=== PATIENT | female | born 1955 | race Caucasian/White ===

== ENCOUNTER → 2020-08-28 12:22 | Outpatient (BNVA) | payer OTHER, SELFPAY | PROVIDERS: Family Provider Family Medicine; PCP Family Medicine; Visit Provider Family Medicine | DX: I10 Essential (primary) hypertension (principal); Z00.00 Encounter for general adult medical examination without abnormal findings | CPT/HCPCS: 80053; 85025 ==

== ENCOUNTER → 2020-09-10 12:57 | Outpatient (BNVA) | payer OTHER, SELFPAY | PROVIDERS: Family Provider Family Medicine; PCP Family Medicine; Visit Provider Nurse Practitioner Family | DX: J06.9 Acute upper respiratory infection, unspecified (principal); Z20.822 Contact with and (suspected) exposure to COVID-19 | CPT/HCPCS: 87635 ==

== ENCOUNTER 2020-09-25 07:51 | Emergency (ER) | payer OTHER, SELFPAY ==
[2020-09-25 08:06] VITALS: BP 154/97; PULSE 97; RESP 20; TEMP 36.7; O2SAT 94; BMI 39.4
--- NOTE | 2020-09-25 08:35 | ED_ITS ---
HPI - General Adult General: Chief complaint: General Medical Stated complaint: Lower Back pain Time Seen by Provider: 09/25/20 08:16 History of Present Illness: HPI narrative: Patient is a 64-year-old female comes to the ED with right-sided back pain. Pain started last night around 2:00 in the morning. She rates the pain at 9.5 out of 10 and says it is located in the right lower back and radiates around into right lower quadrant abdomen. She has nausea as well but has not had any episodes of emesis. She states that some of the pain is positional but also says the pain is pretty constant. She has not taken any [id number] pain meds before coming to the ED. Denies any history of kidney stones. Denies any fever, chills, shortness of breath, chest pain, bowel symptoms, dysuria or hematuria. Associated symptoms: Reports nausea; Deny chest pain, dyspnea, headache(s), rash, palpitations or vomiting Review of Systems Const: Denies: fever(s), chills or fatigue Eyes: Denies: change in vision or eye discomfort ENMT: Denies: throat pain, odynophagia, nasal discharge or nasal congestion Card: Denies: chest pain, palpitations, edema, swelling of feet/ankles, dyspnea on exertion or orthopnea Resp: Denies: dyspnea, productive cough or non-productive cough GI: Reports: abdominal pain (pain radiates to RLQ) and nausea; Denies: vomiting, diarrhea, constipation or hematochezia : Reports: flank pain (right flank); Denies: dysuria or hematuria Musc: Denies: neck pain, back pain or extremity swelling Skin/Breast: Denies: rash or new lesions Neuro: Denies: headache(s), numbness in extremities or weakness in extremities PFS ED PFSH: Medical History Hypertension Social History Smoking and tobacco status: former smoker Alcohol intake: never Physical Exam Const: COMMON NORMALS: patient oriented x3 and alert GENERAL APPEARANCE: cooperative; not comfortable (Uncomfortable due to pain) NUTRITIONAL APPEARANCE: overweight HENMT: COMMON NORMALS: normocephalic HEAD & SCALP: normocephalic MOUTH: Normal oral and palatal mucosa present THROAT: posterior oropharynx normal and uvula midline Eye: COMMON NORMALS: Equal, round and reactive pupils present PUPIL: Yes Equal, round and reactive pupils present Neck/C-Spine: COMMON NORMALS: supple GENERAL: Yes normal visual inspection Resp: COMMON NORMALS: normal respiratory effort, No retractions, No use of accessory muscles and clear to auscultation bilaterally AUSCULTATION: clear to auscultation bilaterally Cardio: COMMON NORMALS: regular rate, regular rhythm, S1 normal heart sound present, S2 normal heart sound present, No gallops present (Cardio), No clicks present (Cardio), No murmurs present (Cardio) and Peripheral pulses 2+ throughout RATE: regular rate RHYTHM: regular rhythm HEART SOUNDS: S1 normal heart sound present and S2 normal heart sound present PERIPHERAL PULSES: Peripheral pulses 2+ throughout GI: COMMON NORMALS: Normal to inspection, nondistended, normoactive bowel sounds present, Soft to palpation and no masses INSPECTION: Yes central obesity PALPATION: Yes Soft to palpation and Yes Tenderness to palpation present (GI) Details: RLQ (Mild, generalized) : BLADDER/KIDNEY EXAM: Yes CVA tenderness on the right Back/Pelvis: GENERAL BACK: Yes CVA tenderness Extremity: COMMON NORMALS: normal to inspection Neuro: COMMON NORMALS: patient oriented x3 and moves all extremities SE NSORIUM/ORIENTATION: Yes alert Skin: GENERAL SKIN EXAM: dry skin Course Reevaluation(s): Reevaluation #1: After patient received IV morphine and fluids her pain improved to a 5 out of 10. Consultations: Consultation #1: I contacted Dr. Velez told about patient case, labs and the kidney stone seen on CT. Told that it was [address] Velez sent to get patient's pain controlled and he will see them outpatient on this coming Thursday. He told me to let patient know that she will possibly be needing a stent placed or shockwave treatment to help stone pass. Time: 10:37 Vital Signs: Vital signs: Vital Signs Temperature 98.1 F 09/25/20 08:06 Pulse Rate 91 09/25/20 11:11 Respiratory Rate 16 09/25/20 11:11 Blood Pressure 115/70 09/25/20 11:11 Pulse Oximetry 93 09/25/20 11:11 MDM - General Adult MDM Narrative: Medical decision making narrative: Patient is a 64-year-old female comes to the ED with right flank pain. Patient appears nontoxic but does appear in some pain and discomfort. Exam shows some right CVA tenderness but the rest of exam is benign. Vital stable. White blood cell count 12.1 the rest of CBC and CMP were unremarkable. UA showed a lot of red blood cells. CT of abdomen pelvis showed a 8 mm right stone at UP junction with right hydronephrosis. Patient was given IV fluids, morphine and Zofran and her symptoms improved. I contacted Dr. Velez and told about patient case, labs and CT findings and he recommended having patient's pain controlled and he will see her outpatient for further evaluation on this coming Thursday. He thought he would probably have to either perform shockwave treatment or a stent to help patient passed out. Patient was discharged home with a prescription for Zofran, tamsulosin and hydrocodone for pain. She was told the outsole caser will contact you in the next several days to set up an appointment with Dr. Velez. Return to ED precautions given. She is told to strain her urine to collect stone and to bring it to Dr. Velez's office for further analysis. Patient understood agree with plan. Lab Data: Attestation: I reviewed the patient's lab results. Labs: Lab Results 09/25/20 09/25/20 09/25/20 Range/Units 09:14 09:14 09:14 WBC 12.1 H (4.0-10.0) 10^3/ uL RBC 4.79 (4.1-5.3) 10^6/u L Hgb 13.9 (11.5-15.3) g/dL Hct 44.9 (37.0-47.0) % MCV 93.7 (81-99) fL MCH 29.0 (28.0-34.0) pg MCHC 31.0 (30.0-36.0) g/dL RDW 14.0 (12.1-15.1) % Plt Count 489 H (130-400) 10^3/c mm MPV 10.8 H (7.4-10.4) fL Neut % (Auto) 75.2 % Lymph % (Auto) 13.9 % Hendricks % (Auto) 8.4 % Eos % (Auto) 1.7 % Baso % (Auto) 0.6 % Neut # (Auto) 9.09 H (1.8-7.7) 10^3/u L Lymph # (Auto) 1.7 (0.8-4.8) 10^3/u L Hendricks # (Auto) 1.0 H (0.2-0.9) 10^3/u L Eos # (Auto) 0.2 (0.0-0.8) 10^3/u L Baso # (Auto) 0.1 (0.0-0.1) 10^3/u L Nucleated RBC % (a uto) 0 % Nucleated RBCs # 0.0 /100WBC Sodium 141 (136-145) mmol/L Potassium 3.9 (3.5-5.1) mmol/L Chloride 102 (98-107) mmol/L Carbon Dioxide 30 H (22-29) mmol/L Anion Gap 12.9 (5-19) BUN 12 (8-23) mg/dL Creatinine 0.7 (0.5-0.9) mg/dL GFR Calculation 84.2 L (90-130) mL/min Glucose 97 (65-115) mg/dL Calculated Osmolal ity 292 (285-295) mOsm/k g Calcium 9.1 (8.5-10.5) mg/dL Total Bilirubin 0.4 (0.15-1.2) mg/dL AST 16 (0-32) U/L ALT 11 (0-33) U/L Alkaline Phosphata se 124 H (35-105) IU/L Total Protein 7.1 (6.6-8.7) g/dL Albumin 4.3 (3.5-5.2) g/dL Globulin 2.8 (1.3-4.6) g/dL Lipase 23 (13-60) U/L Urine Color Yellow (Yellow) Urine Appearance Cloudy (CLEAR) Urine pH 6.5 (5-7) Ur Specific Gravit y 1.010 (1.005-1.030) Urine Protein 2+ H (Negative) Urine Glucose (UA) Norm (Normal) Urine Ketones Negative (Negative) Urine Blood 3+ H (Negative) Urine Nitrate Negative (Negative) Urine Bilirubin 1+ H (Negative) Urine Urobilinogen 1 H (Negative) mg/dL Ur Leukocyte Sally ase 1+ H (Negative) Urine RBC Too numerous to c nt H (0-2) /hpf Urine WBC 5-10 H (0-5) /hpf Ur Squamous Epith Cells 5-10 H (0-5) /hpf Amorphous Sediment Not Reportable Urine Bacteria 3+ H (NONE) /hpf Imaging Data^: CT Abd/Pel: Attestation: I personally reviewed and interpreted this imaging study as follows: Radiologist's impression: [place] [address] [address] [place] [address] CT Scan Report Signed Patient: Rasheeda Child Unit #: [id number] : 1955 Age/Sex: 64 / F ADM Date: 09/25/20 Loc: ER Room/Bed: Attending Dr: Ordering Provider/Ordering MD: Abdias Wong Date of Service: 09/25/20 Procedure(s): CT kidney stone 80851 Accession Number(s): [id number] Report Number: [id number] WS: [id number] CT ABDOMEN AND PELVIS NONCONTRAST HISTORY: Right flank pain with nausea TECHNIQUE: Imaging performed through the abdomen and pelvis. Coronal and sagittal reformats are submitted. All CT scans at [facility] use at least one of these dose optimization mohinder hniques: automated exposure control; mA and/or kV adjustment per patient size (includes targeted exams where dose is matched to clinical indication); or iterative reconstruction. DLP: 1829.36 mGy.cm COMPARISON: None available. Lower thorax: Focal ill-defined areas of consolidation at the lung bases but greater on the RIGHT. May all be related to atelectasis. Due to the dense area of consolidation at the RIGHT lung base follow-up is recommended. This may be an area of pneumonia. Heart is normal size. Moderate size hiatal hernia. Liver: Mild hepatomegaly. No bile duct dilatation. Gallbladder: Normal gallbladder. Pancreas: Normal size and attenuation. Normal pancreatic duct. No pancreatitis or mass. Spleen: Normal size spleen. Low-attenuation 11 mm nodule in the superior spleen. Nonspecific and may be a cyst. Adrenal glands: Normal. No mass. Right kidney: Mildly enlarged LEFT kidney with mild perinephric stranding. Multiple nonobstructing central renal pelvic calcifications. Mild to moderate hydronephrosis secondary to an 8 mm calcification at the UP junction. Ureter distal to this calcification is normal. Left kidney: Normal size kidney. 3.6 x 4.2 cm cyst upper pole is partially exophytic. Nonobstructing 8 mm calcification in the lower pole. No renal obstruction. Aorta: Normal abdominal aorta, no aneurysm or atherosclerosis. No free fluid, intraperitoneal air or significant lymphadenopathy. GI tract: Normal appendix. No GI tract obstruction. Scattered diverticula in the distal colon with no acute diverticulitis. Abdominal wall: Negative. No hernia. Pelvis: Uterus is midline. No adnexal masses. Ovaries are atrophic as expected. No free fluid or adenopathy. Negative appearance of the urinary bladder. Osseous structures: Marked increase in the lumbar lordosis. Mild narrowing of the hip joints with osteophytic ridging. CT/CT kidney stone [id number] IMPRESSION: 1. Mild to moderate RIGHT hydronephrosis secondary to an 8 mm calcification at the UP junction. 2. Additional nonobstructing bilateral renal calculi. 3. Normal appendix. 4. Bibasilar areas of consolidation, is more significant on the RIGHT. RIGHT lower lobe pneumonia versus atelectasis or early neoplasm. Recommend follow-up chest CT in 6-8 weeks. 5. Moderate hiatal hernia. Dictated By: Laura Fletcher DO Signed By: Laura Fletcher DO Signed Date/Time: 09/25/20918 DD/ 1 Discharge Plan Discharge Patient Disposition: Home Clinical Impression: Kidney stone on right side Condition: Stable Prescriptions: New Zofran 4 mg tablet 4 mg PO Q8H PRN (Reason: nausea and vomiting) Qty: 12 RF: 0 tamsulosin 0.4 mg capsule 0.4 mg PO DAILY Qty: 20 RF: 0 No Action loratadine [Claritin] 10 mg tablet 10 mg PO DAILY RF: 0 vitamin B complex [B Complex-Vitamin B12] Tablet 1 tab PO DAILY PRN (Reason: unknown) RF: 0 naproxen 250 mg Tablet 500 mg PO DAILY RF: 0 ProAir HFA 90 mcg/actuation Hfa Aerosol Inhaler 2 puff INHALATION Q4H PRN (Reason: Shortness Of Breath) RF: 0 echinacea 4 cap PO DAILY PRN (Reason: unknown) RF: 0 lisinopril 20 mg tablet 20 mg PO DAILY@13 RF: 0 hydrochlorothiazide 25 mg tablet 25 mg PO DAILY PRN (Reason: see pharmacy comments) RF: 0 Discharge Orders: Discharge ED (Routine); Ordered 09/25/20 Ordered By: Abdias Wong Referrals: Johnnie Theodore MD [Primary Care Provider] - Discharge Diet: Regular Discharge Activity: Increase activity as tolerated Patient Instructions: Kidney Stones (ED), How to Strain Your Urine (ED), Opioid Safety Activity Restrictions/Additional Instructions: Follow-up with medical provider as directed. Case management should be contacting you in the next several days to set up an appointment with Dr. Velez the urologist. Strain urine to catch stone and drink lots of fluid to stay hydrated and help pass stone. Take medications as prescribed. You can take ibuprofen or Aleve for any pain or fevers. Return to the ER or your medical provider if condition worsens. Please read and understand discharge ins tructions. If any questions, please ask. Stand Alone Forms: Work/School Release Coding Level of Care Code ED Mushroom Cutter for Héctor Fwd Exam Comprehensive
--- NOTE | 2020-09-25 08:41 | CT_ITS ---
WS: [id number] CT ABDOMEN AND PELVIS NONCONTRAST HISTORY: Right flank pain with nausea TECHNIQUE: Imaging performed through the abdomen and pelvis. Coronal and sagittal reformats are submi tted. All CT scans at [facility] use at least one of these dose optimization techniques: automated exposure control; mA and/or kV adjustment per patient size (includes targeted exams where d ose is matched to clinical indication); or iterative reconstruction. DLP: 1829.36 mGy.cm COMPARISON: None available. Lower thorax: Focal ill-defined areas of consolidation at the lung bases but greater on the RIGHT. Ma y all be related to atelectasis. Due to the dense area of consolidation at the RIGHT lung base follow -up is recommended. This may be an area of pneumonia. Heart is normal size. Moderate size hiatal maldonado ia. Liver: Mild hepatomegaly. No bile duct dilatation. Gallbladder: Normal gallbladder. Pancreas: Normal size and attenuation. Normal pancreatic duct. No pancreatitis or mass. Spleen: Normal size spleen. Low-attenuation 11 mm nodule in the superior spleen. Nonspecific and may be a cyst. Adrenal glands: Normal. No mass. Right kidney: Mildly enlarged LEFT kidney with mild perinephric stranding. Multiple nonobstructing ce ntral renal pelvic calcifications. Mild to moderate hydronephrosis secondary to an 8 mm calcification at the UP junction. Ureter distal to this calcification is normal. Left kidney: Normal size kidney. 3.6 x 4.2 cm cyst upper pole is partially exophytic. Nonobstructing 8 mm calcification in the lower pole. No renal obstruction. Aorta: Normal abdominal aorta, no aneurysm or atherosclerosis. No free fluid, intraperitoneal air or significant lymphadenopathy. GI tract: Normal appendix. No GI tract obstruction. Scattered diverticula in the distal colon with no acute diverticulitis. Abdominal wall: Negative. No hernia. Pelvis: Uterus is midline. No adnexal masses. Ovaries are atrophic as expected. No free fluid or adolfo opathy. Negative appearance of the urinary bladder. Osseous structures: Marked increase in the lumbar lordosis. Mild narrowing of the hip joints with ost eophytic ridging. CT/CT kidney stone [id number] IMPRESSION: 1. Mild to moderate RIGHT hydronephrosis secondary to an 8 mm calcification at the UP junction. 2. Additional nonobstructing bilateral renal calculi. 3. Normal appendix. 4. Bibasilar areas of consolidation, is more significant on the RIGHT. RIGHT l ower lobe pneumonia versus atelectasis or early neoplasm. Recommend follow-up c hest CT in 6-8 weeks. 5. Moderate hiatal hernia.
[2020-09-25 09:10] VITALS: BP 157/99; PULSE 98; RESP 16; O2SAT 99
[2020-09-25] MEDS: sodium chloride 0.9% 500 ML 999 ML IV (09:19)
[2020-09-25] MEDS: ondansetron 2 mg/ML SDV 2 mL 4 MG IVP (09:20)
[2020-09-25 09:22] VITALS: RESP 16; O2SAT 98
[2020-09-25] MEDS: morphine 4 mg/mL SDV 1 mL IVP ×2 (09:22→10:39)
[2020-09-25 09:27] LABS: Basophils # 0.1 10^3/uL (0.0-0.1); Basophils % 0.6 %; Eosinophils # 0.2 10^3/uL (0.0-0.8); Eosinophils % 1.7 %; Hematocrit 44.9 % (37.0-47.0); Hemoglobin 13.9 g/dL (11.5-15.3); Lymphocytes # 1.7 10^3/uL (0.8-4.8); Lymphocytes % 13.9 %; Mean Corpuscular Volume 93.7 fL (81-99); Mean Platelet Volume 10.8 fL (7.4-10.4); Monocytes % 8.4 %; Neutrophils # 9.09 10^3/uL (1.8-7.7); Neutrophils % 75.2 %; Nucleated Red Blood Cells % 0 %; Platelet Count 489 10^3/cmm (130-400); Red Blood Count 4.79 10^6/uL (4.1-5.3); White Blood Count 12.1 10^3/uL (4.0-10.0)
[2020-09-25 09:46] LABS: Alanine Aminotransferase 11 U/L (0-33); Albumin Level 4.3 g/dL (3.5-5.2); Alkaline Phosphatase 124 IU/L (35-105); Anion Gap 12.9 (5-19); Aspartate Amino Transferase 16 U/L (0-32); Blood Urea Nitrogen 12 mg/dL (8-23); Calcium 9.1 mg/dL (8.5-10.5); Carbon Dioxide 30 mmol/L (22-29); Chloride 102 mmol/L (98-107); Globulin 2.8 g/dL (1.3-4.6); Glomerular Filtration Rate 84.2 mL/min (90-130); Glucose 97 mg/dL (65-115); Lipase 23 U/L (13-60); Osmolality Calculated 292 mOsm/kg (285-295); Potassium 3.9 mmol/L (3.5-5.1); Sodium 141 mmol/L (136-145); Total Bilirubin 0.4 mg/dL (0.15-1.2); Total Protein 7.1 g/dL (6.6-8.7)
[2020-09-25 10:00] VITALS: BP 122/80; PULSE 90; RESP 14; O2SAT 97
[2020-09-25 10:05] LABS: Protein Urine 2+ (Negative); Urine Appearance Cloudy (CLEAR); Urine Color Yellow (Yellow); pH Urine 6.5 (5-7)
[2020-09-25 10:06] LABS: Bilirubin Urine 1+ (Negative); Blood Urine 3+ (Negative); Glucose Urine UA Norm (Normal); Ketones Urine Negative (Negative); Leukocyte Esterase Urine 1+ (Negative); Nitrate Urine Negative (Negative); RBC Urine TOO NUMEROUS TO CNT /hpf (0-2); Urobilinogen Urine 1 mg/dL (Negative)
[2020-09-25 10:07] LABS: Bacteria Urine 3+ /hpf
[2020-09-25 10:08] LABS: Add Urine Culture? Yes
[2020-09-25] MEDS: tamsulosin 0.4 mg Capsule PO (10:38)
[2020-09-25 10:39] VITALS: RESP 14; O2SAT 95
[2020-09-25 11:11] VITALS: BP 115/70; PULSE 91; RESP 16; O2SAT 93
--- NOTE | 2020-09-25 11:59 | DCPLANNER ---
slot manager had message to schedule a follow up appointment for patient with Dr. Velez. slot manager called the office of Dr. Velez, spoke with Shanna, gave clinic patients information. slot manager was told that patients information would be printed and reviewed. Clinic will call patient with appointment information.
--- NOTE | 2020-09-26 08:00 | DCPLANNER ---
Patient has a follow up appointment scheduled for Saturday, September 26, 2020 at 10:[address] Velez. Clinic will call patient with appointment information.
--- NOTE | 2020-10-11 12:18 | DCPLANNER ---
Patient had a follow up appointment scheduled for 09.26.[address] Velez - patient did attend appointment.
== END 2020-09-25 11:14 | disposition home or self-care (01) ==
PROVIDERS: Emergency Provider Physician Assistant; PCP Family Medicine
DX: N20.0 Calculus of kidney (principal); I10 Essential (primary) hypertension; Z87.891 Personal history of nicotine dependence
CPT/HCPCS: 74176; 80053; 81001; 83690; 85025; 87086; 96374; 96375; 96376; 99284; J2270; J2405; J7040

== ENCOUNTER 2020-09-26 08:48 | Outpatient (CLI) | payer OTHER, SELFPAY ==
--- NOTE | 2020-09-26 09:00 | XR_ITS ---
WS: [id number] KUB, AP view, 09/26/2020 Clinical Data: KIDNEY STONE Comparison: CT abdomen and pelvis, 09/25/2020 Findings: There is a round calcification measuring 0.8 cm overlying the right ureteropelvic junction. There may be a calcification overlying the inferior pole of the left kidney but the left kidney is partly obsc ured by fecal material and gas. The true pelvis shows no calcifications. XR/XR KUB [id number] Impression: 1. Probable bilateral renal calculi.
== END 2020-09-26 08:49 | disposition home or self-care (01) ==
LOC: RAD 08:52
PROVIDERS: PCP Family Medicine; Visit Provider Urology
DX: N20.0 Calculus of kidney (principal)
CPT/HCPCS: 74018; 81003

== ENCOUNTER 2020-10-01 12:42 | Day surgery (SDC) | payer OTHER, SELFPAY ==
[2020-09-28 14:08] VITALS: BMI 39.4
[2020-10-01] VITALS (7 sets, daily range): BP systolic 94–107; BP diastolic 53–75; PULSE 83–100; RESP 14–19; TEMP 36.2–36.6; O2SAT 93–99
--- NOTE | 2020-10-01 12:48 | XRR_ITS ---
PROCEDURE INFORMATION: Exam: XR Abdomen Exam date and time: 10/01/2020 12:48 PM Age: 64 years old Clinical indication: Screening exam; Other: Preop right upj eswl; Prior surgery; Surgery type: Tubal um hernia repairs TECHNIQUE: Imaging protocol: XR of the abdomen. Views: Frontal supine view of the abdomen. 1 View. COMPARISON: CR XR KUB [id number] 09/26/2020 9:20 AM FINDINGS: Gastrointestinal tract: Normal. No bowel dilation. Organs: Small opacity in profile with bilateral renal shadows may represent nephrolithiasis. Bones/joints: Moderate spondyloarthropathy changes of lumbar spine. XR/XR KUB [id number] IMPRESSION: 1. No acute findings. 2. Bilateral nephrolithiasis suspected.
[2020-10-01] MEDS: sodium chloride 0.9% 1,000 ML 30 ML IV (13:52)
--- NOTE | 2020-10-01 15:49 | W.PM.OPSUD ---
Surgery/Procedure H&P Update DATE OF PROCEDURE: October 01, 2020 DATE H&P PERFORMED: 09/26/20 H&P UPDATE INFORMATION: I have reviewed H&P completed within last 30 days, I have examined patient prior to procedure, No changes to prior documentation and [place] is [place] [facility] date indicated PREOP DIAGNOSIS: Right UPJ stone PLANNED PROCEDURE: Operation Date: 10/01/20 14:45 Proposed Procedures p Cystoscopy 97277 82665 N20.0 N20.1(Not Applicable) - Arslan Velez MD s Ureteral Stent Placement(Right) - Arslan Velez MD s ESWL(Not Applicable) - Arslan Velez MD
[2020-10-01] MEDS: levofloxacin-dextrose 5 % 500 MG/100 ML PREMIX 100 MG IV (16:32)
--- NOTE | 2020-10-01 17:15 | ANES.PREANE2 ---
Pre-Anesthetic Assessment Pre-Anesthetic Assessment: Height/Weight: Height 1.65 m Weight 107.501 kg Temp Pulse Resp BP Pulse Ox 97.8 F 100 18 94/75 97 10/01/20 13:32 10/01/20 13:32 10/01/20 13:32 10/01/20 13:32 10/01/20 13:32 Preop Diagnosis: Right UPJ stone Proposed Procedure: Operation Date: 10/01/20 14:45 Proposed Procedures p Cystoscopy 70226 04258 N20.0 N20.1(Not Applicable) - Arslan Velez MD s Ureteral Stent Placement(Right) - Arslan Velez MD s ESWL(Not Applicable) - Arslan Velez MD Was Beta Simona taken within 24 hours: N/A Was Clonidine taken within 24 hours: N/A Last intake: Intake Last Liquid Date 10/01/20 Last Liquid Time 10:00 Last Solid Date 09/29/20 Last Solid Time 18:00 Social: Social History: No alcohol and No tobacco Exam: Pre-Anes Outpt Exam: alert, oriented x 3, clear to auscultation bilaterally and regular rate & rhythm Airway: Submandibular: WNL Cervical ROM: WNL MP: 2 Dentition: Full Pulmonary: Pulmonary: Asthma CV/HEM: CV/HEM: HTN GI: GI: GERD Anesthetic Plan: ASA status: 2 Anesthesia: General Risk of > 500 ml blood loss (7ml/kg in children): No Meds/Allergies Current Medications: Current Medications Generic Name Dose Route Start Last Admin Trade Name Freq PRN Reason Stop Dose Admin Sodium Chloride 1,000 mls @ 30 ml s/hr 10/01/20 13:00 10/01/20 13:52 Sodium Chloride 0.9% IV 10/02/20 12:59 30 mls/hr .Q24H TOBY Administration PFSH Anesthesia PFSH: Medical History Bilateral renal stones History of abdominal hernia Hypertension Right ureteral stone Surgical History History of tonsillectomy and adenoidectomy History of tubal ligation Family History Mother Cancer THYROID AND LUNG CANCER Father , IN HIS 60'S Sepsis Social History Smoking and tobacco status: former smoker Alcohol intake: never Marital status: Current occupational status: employed History of recent travel: No Data Anesthesia Cardiac Studies: No Data to Display
--- NOTE | 2020-10-01 17:32 | P.OP_ITS ---
Operative Report Date of procedure: October 01, 2020 Pre-op Diagnosis: Right UPJ stone Post-op diagnosis: same Procedure Done: 1. Cystoscopy, RIGHT: Ureteral stent placement 2. Right renal extracorporeal shockwave lithotripsy Implants: 7 [place] by 26 cm double-pigtail stent Pathology: none sent Surgeon: Rosie Cash Surrender Calculator: Skip Anesthesia: General Estimated blood loss: None Urine output: Not measured Complications: None Findings: 1. Stent placed without difficulty 2. Stone easily focused upon and treated with excellent results Condition: stable Disposition: PACU Brief History: Mrs. Child is a very pleasant 64-year-old white female recently diagnosed with a an obstructing right UPJ stone. She was symptomatic. No contraindications to ESWL. Procedure: After routine preoperative evaluation examination and obtaining of informed consent she was taken to the operating suite on 10/01/2020 where general anesthesia was administered without difficulty after appropriate timeout was performed, SCDs confirmed to be functioning, preoperative antibiotics administered, beta-shilo protocol confirmed. Prepped and draped in usual sterile fashion in dorsolithotomy position paying careful attention to avoiding pressure points. 21 [place] cystoscope with 30 degree lens was introduced into the urethra meatus and advanced into the bladder to videoscopy. No stones were seen. Flexible tip guidewire advanced up the right ureter up into the right kidney and a 7 [place] by 26 cm double-pigtail stent without string was advanced over the guidewire through the cystoscope into appropriate position as confirmed via fluoroscopy and cystoscopy. The stone was easily identified on fluoroscopy. She was then positioned in supine position paying careful attention to avoiding pressure points. The shock head was positioned anteriorly. The focal point was brought to the stone utilizing biplanar fluoroscopy. Shockwave therapy was initiated intensity of 1 advanced an intensity of 4. After about 300 shocks a several minute pause was conducted. Right was initiated at 70 and later advanced to 90. The stone showed early and continued change throughout the procedure. By the completion of procedure I could not see any substantial fragments remaining. Fluoroscopy was utilized for real-time position changes as needed. A total of 2500 shocks were administered. She tolerated the procedure well without complications and was awakened in the operating room and returned to the recovery room in stable condition. PLANS: 1. Anticipate discharge from outpatient surgery 2. Follow-up in roughly 1 week with a KUB possible cystoscopy and stent removal
--- NOTE | 2020-10-01 18:08 | ANE.PACU2 ---
Inpatient post-anesthesia follow up: Airway intact: Yes Vital signs: Temperature 97.7 F Pulse Rate 94 Respiratory Rate 17 Blood Pressure 98/65 Pulse Oximetry 93 Oxygen Delivery Me thod Room Air Oxygen Flow Rate 7 Fraction of Inspir ed Oxygen Hydration adequate: Yes Nausea and vomiting: No Pain level: 2 Mental status: Baseline
[2020-10-01] MEDS: HYDROcodone-acetaminophen 5-325 mg Tablet 1 TAB PO (18:28)
== END 2020-10-01 18:38 | disposition home or self-care (01) ==
PROVIDERS: PCP Family Medicine; Visit Provider Urology
PROC: 0TJB8ZZ Inspection of Bladder, Via Natural or Artificial Opening Endoscopic (ICD-10-PCS; CPT 52000; principal; 2020-10-01 14:40)
PROC: (CPT 50605; 2020-10-01 14:40)
PROC: (CPT 50590; 2020-10-01 14:40)
DX: N20.1 Calculus of ureter (principal); J45.909 Unspecified asthma, uncomplicated; I10 Essential (primary) hypertension; K21.9 Gastro-esophageal reflux disease without esophagitis; Z87.891 Personal history of nicotine dependence
CPT/HCPCS: 50590; 52332; 74018; 96365; C2625; J1956; J2370; J2405; J2704; J2710; J3010; J3490; J7030

== ENCOUNTER 2020-10-10 09:45 | Outpatient (CLI) | payer OTHER, SELFPAY ==
--- NOTE | 2020-10-10 09:57 | XR_ITS ---
WS: [id number] KUB, AP view, 10/10/2020 Clinical Data: BILATERAL RENAL STONES Comparison: KUB, 10/01/2020. Findings: No abnormal intraabdominal masses are seen. There is no dilatated small bowel or evidence of obstruct ion. There is a right ureteral stent in good position. There may be a calcification adjacent to the renal pelvic region of the stent. There is a 0.6 cm calcification overlying the end. Pole of the left kidne y. XR/XR KUB [id number] Impression: 1. Right ureteral stent. 2. Probable bilateral renal calculi.
== END 2020-10-10 09:46 | disposition home or self-care (01) ==
LOC: RAD 09:53
PROVIDERS: PCP Family Medicine; Visit Provider Urology
DX: N20.0 Calculus of kidney (principal); N20.1 Calculus of ureter; Z96.0 Presence of urogenital implants
CPT/HCPCS: 74018; 81003; 82365; 88300

== ENCOUNTER 2021-04-11 09:47 | Outpatient (CLI) | payer MEDICARE, SELFPAY ==
--- NOTE | 2021-04-11 10:02 | XR_ITS ---
WS: [id number] ABDOMEN KUB CLINICAL INFORMATION: Renal/ureteral calculi. COMPARISON: October 10, 2020 FINDINGS: LEFT renal parenchymal calculus unchanged from previous measuring 8 mm overlying the lower pole. One or 2 tiny RIGHT renal parenchymal calculi. No visualized ureteral calculi. Pelvic phleboliths. Osteop enia. Advanced spondylitic changes lumbar spine with mild lumbar curve convex LEFT. XR/XR KUB [id number] Impression: 1. Interval removal of the RIGHT double-J ureteral stent compared to September. 2. Stable 8 mm LEFT renal parenchymal calculus overlying the lower pole. 3. One or 2 tiny RIGHT renal parenchymal calculi. 4. No visualized ureteral calculi. Pelvic phleboliths.
== END 2021-04-11 09:48 | disposition home or self-care (01) ==
LOC: RAD 09:59
PROVIDERS: PCP Family Medicine; Visit Provider Urology
DX: Z46.6 Encounter for fitting and adjustment of urinary device (principal); N20.2 Calculus of kidney with calculus of ureter
CPT/HCPCS: 73562; 74018; 81003

== ENCOUNTER 2021-10-08 09:29 | Outpatient (CLI) | payer MEDICARE, SELFPAY ==
--- NOTE | 2021-10-08 09:45 | XR_ITS ---
WS: [id number] Exam: XR KUB [id number] Date/Time of Exam: 10/08/2021 9:36 AM Reason For Exam: BILATERAL RENAL STONE Comparison 04/11/2021. Calcifications superimpose both kidneys apparently representing known renal stones. Nonspecific pelvi c calcifications noted. No bowel obstruction or free air. No sign of organ enlargement. Degenerative changes of the L-spine and hips. XR/XR KUB [id number] IMPRESSION: 1. Calcifications superimpose both kidneys and apparently represent known renal stones. 2. No acute abdominal process.
== END 2021-10-08 09:30 | disposition home or self-care (01) ==
PROVIDERS: PCP Family Medicine; Visit Provider Urology
DX: N20.0 Calculus of kidney (principal)
CPT/HCPCS: 74018; 81003; 99213

== ENCOUNTER 2021-11-06 14:15 | Emergency (ER) | payer MEDICARE, SELFPAY ==
[2021-11-06 14:32] VITALS: BP 141/84; PULSE 86; RESP 20; TEMP 36.6; O2SAT 91; BMI 39.7
--- NOTE | 2021-11-06 14:52 | XR_ITS ---
WS: [id number] XR chest 1V portable [id number] REASON FOR EXAM: sob FINDINGS: Thoracic aorta is within normal limits. There is mild cardiomegaly. Calcified granulomatous disease in both hemithoraces. There are reticular interstitial lung opacities which are of unknown chronicity but most likely chron ic. (No previous examination for comparison) Flattening of the left hemidiaphragmatic contour with blunting of the left costophrenic angle, pleura l scarring. Moderate changes of degenerative spondylosis in the mid and lower thoracic spine. XR/XR chest 1V portable [id number] IMPRESSION: Mild cardiomegaly. Chronic appearing interstitial changes in the lung bases with no definite acute chest abnormality.
--- NOTE | 2021-11-06 14:53 | ECG_ITS ---
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 Measurements Intervals [place] Rate: 87 P: 37 HI: 142 QRS: -43 QRSD: 126 T: 16 QT: 414 QTc: 500 Interpretive Statements SINUS RHYTHM WITH OCCASIONAL SUPRAVENTRICULAR PREMATURE COMPLEXES LEFT AXIS DEVIATION [QRS AXIS < -30] RIGHT BUNDLE BRANCH BLOCK [120+ ms QRS DURATION, UPRIGHT V1, 40+ ms S IN I/aVL/V4/V5/V6] No previous ECG available for comparison Electronically Signed On 11-07-2021 10:35:05 CDT by Patel Oleary M.D. [email or web address].[employer]/store/NU/[id number] f
[2021-11-06 15:35] LABS: Basophils # 0.1 10^3/uL (0.0-0.1); Basophils % 0.8 %; Eosinophils # 0.5 10^3/uL (0.0-0.8); Eosinophils % 5.7 %; Hemoglobin 13.8 g/dL (11.5-15.3); Lymphocytes # 1.8 10^3/uL (0.8-4.8); Lymphocytes % 19.3 %; Mean Corpuscular HGB Conc 30.7 g/dL (30.0-36.0); Mean Corpuscular Hemoglobin 29.1 pg (28.0-34.0); Mean Corpuscular Volume 94.9 fl (81-99); Monocytes # 0.6 10^3/uL (0.2-0.9); Monocytes % 6.1 %; Neutrophils # 6.16 10^3/uL (1.8-7.7); Neutrophils % 67.9 %; Nucleated Red Blood Cells % 0 %; Platelet Count 226 10^3/cmm (130-400); Red Blood Count 4.74 10^6/uL (4.1-5.3); Red Cell Distribution Width 15.6 % (12.1-15.1); White Blood Count 9.1 10^3/uL (4.0-10.0)
[2021-11-06 16:05] LABS: Alanine Aminotransferase 10 U/L (0-33); Albumin Level 4.1 g/dL (3.5-5.2); Alkaline Phosphatase 136 U/L (35-105); Anion Gap 12.9 (5-19); Aspartate Amino Transferase 15 U/L (0-32); Blood Urea Nitrogen 15 mg/dL (8-23); Calcium 9.4 mg/dL (8.5-10.5); Carbon Dioxide 30 mmol/L (22-29); Chloride 100 mmol/L (98-107); Globulin 2.9 g/dL (1.3-4.6); Glomerular Filtration Rate 83.7 mL/min (90-130); Glucose 89 mg/dL (65-115); NT Pro B Type Natriuretic Pept 46 pg/mL (0-125); Osmolality Calculated 288 mOsm/kg (285-295); Potassium 3.9 mmol/L (3.5-5.1); Sodium 139 mmol/L (136-145); Total Bilirubin 0.4 mg/dL (0.15-1.2)
[2021-11-06 16:31] LABS: Troponin(5th) Baseline 8 ng/L (0-10)
--- NOTE | 2021-11-06 16:36 | W.ED.SOB ---
HPI - SOB/Dyspnea General: Chief Complaint: Shortness of Breath/Dyspnea Stated Complaint: sob Time Seen by Provider: 11/06/21 16:12 History of Present Illness: HPI Narrative: Patient is a 66-year-old female comes to the ED with shortness of breath. Patient has a history of asthma and hypertension. She has an albuterol inhaler that she uses as needed for any shortness of breath or wheezing. She states that approximately 3 weeks ago she started developing shortness of breath and wheezing that has continued to progress. Endorses having a productive cough with a yellow sputum. She has to use her albuterol inhaler multiple times a day. Shortness of breath worsens with exertion. Denies any fever, nausea/vomiting, chest pain, palpitations, abdominal pain, bladder or bowel symptoms. Associated symptoms: Deny abdominal pain, chest pain, fever(s), nausea, orthopnea, palpitations or vomiting Review of Systems Const: Denies: fever(s), chills or fatigue Eyes: Denies: change in vision or eye discomfort ENMT: Denies: throat pain, odynophagia, nasal discharge or nasal congestion Card: Denies: chest pain, palpitations, edema, swelling of feet/ankles, dyspnea on exertion or orthopnea Resp: Reports: dyspnea, productive cough and wheezing; Denies: non-productive cough GI: Denies: abdominal pain, nausea, vomiting, diarrhea, constipation or hematochezia : Denies: flank pain, dysuria or hematuria Musc: Denies: neck pain, back pain or extremity swelling Skin/Breast: Denies: rash or new lesions Neuro: Denies: headache(s), numbness in extremities or weakness in extremities PFS ED PFSH: Medical History Bilateral renal stones History of abdominal hernia Hypertension Venous insufficiency of both lower extremities Surgical History History of lithotripsy History of tonsillectomy and adenoidectomy History of tubal ligation Family History Mother Cancer THYROID AND LUNG CANCER Father , IN HIS 60'S Sepsis Social History Smoking and tobacco status: former smoker Alcohol intake: never Marital status: Current occupational status: employed History of recent travel: No Physical Exam Const: COMMON NORMALS: no acute distress, patient oriented x3 and alert GENERAL APPEARANCE: cooperative and comfortable HENMT: COMMON NORMALS: normocephalic HEAD & SCALP: normocephalic MOUTH: Normal oral and palatal mucosa present THROAT: posterior oropharynx normal and uvula midline Neck/C-Spine: COMMON NORMALS: supple GENERAL: Yes normal visual inspection Resp: COMMON NORMALS: normal respiratory effort, No retractions and No use of accessory muscles AUSCULTATION: wheezes expiratory wheezes and lower bilaterally Cardio: COMMON NORMALS: regular rate, regular rhythm, S1 normal heart sound present, S2 normal heart sound present, No gallops present (Cardio), No clicks present (Cardio), No murmurs present (Cardio) and Peripheral pulses 2+ throughout RATE: regular rate RHYTHM: regular rhythm HEART SOUNDS: S1 normal heart sound present and S2 normal heart sound present PERIPHERAL PULSES: Peripheral pulses 2+ throughout GI: COMMON NORMALS: Normal to inspection, nondistended, normoactive bowel sounds present, Soft to palpation, non-tender and no masses PALPATION: Yes Soft to palpation : COMMON NORMALS: Yes no CVA tenderness BLADDER/KIDNEY EXAM: Yes no CVA tenderness Back/Pelvis: COMMON NORMALS: no CVA tenderness Extremity: COMMON NORMALS: normal to inspection Neuro: COMMON NORMALS: patient oriented x3 SENSORIUM/ORIENTATION: Yes alert GAIT: Yes Normal gait present Skin: GENERAL SKIN EXAM: dry skin Course Vital Signs: Vital signs: Vital Signs Temperature 98 F 11/06/21 14:32 Pulse Rate 88 11/06/21 18:05 Respiratory Rate 20 H 11/06/21 18:05 Blood Pressure 133/77 11/06/21 18:05 Pulse Oximetry 97 11/06/21 18:05 Oxygen Delivery Me thod 11/06/21 18:05 MDM - SOB/Dyspnea Medical Decision Making Patient is a 66-year-old female comes to the ED with shortness of breath. Patient has a history of asthma and hypertension. She has an albuterol inhaler that she uses as needed for any shortness of breath or wheezing. She states that approximately 3 weeks ago she started developing shortness of breath and wheezing that has continued to progress. Endorses having a productive cough with a yellow sputum. Vitals are stable. Patient appears nontoxic and in no acute distress. Bilateral lower lung wheezing noted upon auscultation. Rest of exam is benign. Labs were unremarkable patient's white blood cell count is 9.1. Chest x-ray shows some chronic appearing interstitial changes in the lung bases with no pneumonia seen. Troponins negative. EKG showed no acute findings. Patient was given DuoNeb breathing treatments here in the ED and lung sounds improved. Patient stated her shortness of breath and wheezing improved after breathing treatment. She was given a dose of Solu-Medrol here in the ED as well. She was diagnosed with bronchitis and asthma exacerbation and discharged home with a prescription for an antibiotic, steroid and budesonide inhaler. Told to follow-up with PCP in the next week for reevaluation. Patient understood and agreed with plan. Lab Data I reviewed the patient's lab results. : 11/06/21 15:28 11/06/21 15:28 Labs/Radiology: Radiology Impressions Chest X-Ray 11/06/21 14:52 IMPRESSION: Mild cardiomegaly. Chronic appearing interstitial changes in the lung bases with no definite acute chest abnormality. Laboratory Results WBC 9.1 10^3/uL (4.0-10.0) 11/06/21 15: RBC 4.74 10^6/uL (4.1-5.3) 11/06/21 15:28 Hgb 13.8 g/dL (11.5-15.3) 11/06/21 15:28 Hct 45.0 % (37.0-47.0) 11/06/21: MCV 94.9 fl (81-99) 11/06/21 15:28 MCH 29.1 pg (28.0-34.0) 11/06/21 15:28 MCHC 30.7 g/dL (30.0-36.0) 11/06/21 15:28 RDW 15.6 % (12.1-15.1) H 11/06/21 15:28 Plt Count 226 10^3/cmm (130-400) 11/06/21 15:28 MPV 11.0 fL (7.4-10.4) H 11/06/21 15:28 Neut % (Auto) 67.9 % 11/06/21 15:28 Lymph % (Auto) 19.3 % 11/06/21 15:28 [place] % (Auto) 6.1 % 11/06/21 15: Eos % (Auto) 5.7 % 11/06/21 15: Baso % (Auto) 0.8 % 11/06/21 15: Neut # (Auto) 6.16 10^3/uL (1.8-7.7) 11/06/21 15: Lymph # (Auto) 1.8 10^3/uL (0.8-4.8) 11/06/21 15: [place] # (Auto) 0.6 10^3/uL (0.2-0.9) 11/06/21 15: Eos # (Auto) 0.5 10^3/uL (0.0-0.8) 11/06/21 15: Baso # (Auto) 0.1 10^3/uL (0.0-0.1) 11/06/21 15: Nucleated RBC % (auto) 0 % 11/06/21 15: Nucleated RBCs # 0.0 /100WBC 11/06/21 15: Sodium 139 mmol/L (136-145) 11/06/21 15: Potassium 3.9 mmol/L (3.5-5.1) 11/06/21 15: Chloride 100 mmol/L (98-107) 11/06/21 15: Carbon Dioxide 30 mmol/L (22-29) H 11/06/21 15: Anion Gap 12.9 (5-19) 11/06/21 15: BUN 15 mg/dL (8-23) 11/06/21 15: Creatinine 0.7 mg/dL (0.5-0.9) 11/06/21 15: GFR Calculation 83.7 mL/min (90-130) L 11/06/21 15: Glucose 89 mg/dL (65-115) 11/06/21 15: Calculated Osmolality 288 mOsm/kg (285-295) 11/06/21 15: Calcium 9.4 mg/dL (8.5-10.5) 11/06/21 15: Total Bilirubin 0.4 mg/dL (0.15-1.2) 11/06/21 15:28 AST 15 U/L (0-32) 11/06/21 15:28 ALT 10 U/L (0-33) 11/06/21 15:28 Alkaline Phosphatase 136 U/L (35-105) H 11/06/21 15:28 Troponin T Baseline 8 ng/L (0-10) 11/06/21 15:28 Troponin T 120 Minute 7.55 ng/L (0-10) 11/06/21 16:57 Delta Troponin T -0.45 ABS# (0-10) L 11/06/21 16:57 NT-Pro-B Natriuret Pep 46 pg/mL (0-125) 11/06/21 15:28 Total Protein 7.0 g/dL (6.6-8.7) 11/06/21 15:28 Albumin 4.1 g/dL (3.5-5.2) 11/06/21 15:28 Globulin 2.9 g/dL (1.3-4.6) 11/06/21 15:28 EKG Data EKG 1: EKG Interpretation Date: 11/06/21 Interpretation: Sinus rhythm, 87 bpm, no ST segment elevation or depression seen. Discharge Plan Discharge Patient Disposition: Home Clinical Impression: Bronchitis Asthma exacerbation Qualifiers: Asthma severity: mild Asthma persistence: unspecified Qualified Code(s): J45.901 - Unspecified asthma with (acute) exacerbation Condition: Stable Prescriptions: New Medrol (Juvenal) 4 mg tablets,dose pack See Rx Instructions .ROUTE .COMPLEX Qty: 21 0RF Rx Instructions: orally per package directions doxycycline hyclate 100 mg capsule 100 mg PO BID 10 Days Qty: 20 0RF budesonide 180 mcg/actuation aerosol powdr breath activated 2 inh inhalation QAM 30 Days Qty: 1 0RF No Action vitamin B complex [B Complex-Vitamin B12] Tablet 1 tab PO DAILY PRN (Reason: unknown) loratadine [Claritin] 10 mg tablet 10 mg PO DAILY albuterol sulfate [ProAir HFA] 90 mcg/actuation HFA aerosol inhaler 2 puff INHALATION Q4H PRN (Reason: Shortness Of Breath) 30 Days Qty: 8.5 5RF naproxen 250 mg Tablet 500 mg PO DAILY lisinopril 20 mg tablet 20 mg PO DAILY@13 hydrochlorothiazide 25 mg tablet 25 mg PO DAILY elderberry fruit and flower 460-115 mg Capsule 1 cap PO DAILY Discharge Orders: Discharge ED (Routine); Ordered 11/06/21 Ordered By: Abdias Wong Referrals: Johnnie Theodore MD [Primary Care Provider] - Discharge Diet: Regular Discharge Activity: Increase activity as tolerated Patient Instructions: Asthma Exacerbation - Adult, Bronchitis (Acute) - Adult Activity Restrictions/Additional Instructions: Follow-up with medical provider as directed in the next 5 to 7 days for reevaluation. Take medications as prescribed. Return to the ER or your medical provider if condition worsens. Please read and understand discharge instructions. Thank you for choosing [facility] for your healthcare needs today. Please realize this is an emergency room and that we are providing you with a medical screening exam and this may not be complete and all inclusive of all the testing and or work up that you may need to determine your ailment or severity of your illness. It is very important that you follow up as instructed or that you return to the Emergency Department should you have concerns or if your condition changes or worsens in any way. Coding Level of Care Code ED International Account Representative for Héctor Fwd Exam Comprehensive
[2021-11-06 16:39] VITALS: BP 145/79; PULSE 81; RESP 17; O2SAT 96
[2021-11-06] MEDS: ipratropium-albuterol 3 mL Neb 6 ML INHALATION (17:35)
[2021-11-06 17:36] VITALS: PULSE 83; RESP 16; O2SAT 96
[2021-11-06 17:40] LABS: Troponin 5 2HR 7.55 ng/L (0-10)
[2021-11-06 17:50] VITALS: PULSE 95
[2021-11-06 17:51] LABS: Troponin 5 2HR Delta -0.45 ABS# (0-10)
[2021-11-06 18:05] VITALS: BP 133/77; PULSE 88; RESP 20; O2SAT 97
== END 2021-11-06 18:09 | disposition home or self-care (01) ==
PROVIDERS: Emergency Provider Physician Assistant; PCP Family Medicine
DX: J45.901 Unspecified asthma with (acute) exacerbation (principal); I10 Essential (primary) hypertension; I45.10 Unspecified right bundle-branch block; Z87.891 Personal history of nicotine dependence
CPT/HCPCS: 36415; 71045; 80053; 83880; 84484; 85025; 93005; 94640; 96372; 99285; J2930

== ENCOUNTER → 2023-02-26 16:03 | Outpatient (BNVA) | payer MEDICARE, SELFPAY | PROVIDERS: PCP Family Medicine; Visit Provider Family Medicine | DX: J45.909 Unspecified asthma, uncomplicated (principal); I10 Essential (primary) hypertension; J01.10 Acute frontal sinusitis, unspecified; J45.31 Mild persistent asthma with (acute) exacerbation | CPT/HCPCS: 80053; 85025 ==

== ENCOUNTER 2023-11-27 12:04 | Outpatient (CLI) | payer MEDICARE, SELFPAY ==
--- NOTE | 2023-11-27 12:08 | XR_ITS ---
WS: [email or web address] Exam: XR chest 2V insp/exp [id number] Date/Time of Exam: 11/27/2023 12:12 PM Reason For Exam: J45.30 - Mild persistent asthma, uncomplicated Comparison 11/06/2021. There are areas of plaque atelectasis in the bilateral lower lung zones. No acute infiltrates. Mild c ardiac enlargement. No pleural effusions. The mediastinum is normal in contour. Bony structures are i ntact. No pneumothorax. XR/XR chest 2V insp/exp [id number] IMPRESSION: 1. Bibasal plaque atelectasis. No acute process noted. 2. Mild cardiac enlargement.
== END 2023-11-27 12:05 | disposition home or self-care (01) ==
LOC: RAD 12:06
PROVIDERS: PCP Family Medicine; Visit Provider Family Medicine
DX: J45.30 Mild persistent asthma, uncomplicated (principal); J98.11 Atelectasis; I51.7 Cardiomegaly
CPT/HCPCS: 71046

== ENCOUNTER 2024-04-29 11:26 | Inpatient (IN) | payer MEDICARE, SELFPAY ==
[2024-04-29] VITALS (15 sets, daily range): BP systolic 147–160; BP diastolic 74–91; PULSE 93–117; RESP 16–20; TEMP 36.4–36.5; O2SAT 72–98; BMI 39.7; BMI 38.8
--- NOTE | 2024-04-29 11:29 | XR_ITS ---
WS: [email or web address] XR chest 1V portable [id number] REASON FOR EXAM: Shortness of breath FINDINGS: Chest is unchanged compared to 11/27/2023. Moderate tortuosity and ectasia of the thoracic aorta with mild cardiomegaly. Calcified granulomatous disease bilaterally. No acute pulmonary parenchymal or pleural abnormality is identified. Moderate degenerative spondylosis in the thoracic spine. XR/XR chest 1V portable [id number] IMPRESSION: Stable chest without acute abnormality.
--- NOTE | 2024-04-29 11:30 | ECG_ITS ---
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 Measurements Intervals [place] Rate: 97 P: 19 TN: 128 QRS: -46 QRSD: 133 T: 20 QT: 374 QTc: 476 Interpretive Statements SINUS RHYTHM LEFT AXIS DEVIATION [QRS AXIS < -30] RIGHT BUNDLE BRANCH BLOCK [120+ ms QRS DURATION, UPRIGHT V1, 40+ ms S IN I/aVL/V4/V5/V6] Compared to ECG 11/06/2021 14:38:32 No significant changes Electronically Signed On 04-30-2024 18:02:33 DISPATCHER SERVICE CHIEF by Patel Oleary M.D. [email or web address]/store/[id number]
[2024-04-29 11:56] LABS: Basophils # 0.1 10^3/uL (0.0-0.1); Basophils % 0.9 %; Eosinophils # 0.6 10^3/uL (0.0-0.8); Eosinophils % 6.5 %; Lymphocytes # 1.4 10^3/uL (0.8-4.8); Lymphocytes % 16.6 %; Mean Corpuscular HGB Conc 30.7 g/dL (30-55); Mean Corpuscular Hemoglobin 29.2 pg (27-33); Mean Corpuscular Volume 95.1 fl (85-98); Mean Platelet Volume 11.3 fL (7.4-10.4); Monocytes # 0.5 10^3/uL (0.2-0.9); Monocytes % 6.2 %; Neutrophils # 6.04 10^3/uL (1.8-7.7); Neutrophils % 69.6 %; Nucleated Red Blood Cells % 0 %; Platelet Count 215 10^3/cmm (157-399); Red Blood Count 4.73 10^6/uL (3.85-5.65); Red Cell Distribution Width 15.2 % (12.1-15.1); White Blood Count 8.68 10^3/uL (3.29-11.43)
[2024-04-29 12:15] LABS: Troponin(5th) Baseline 8 ng/L (0-10)
[2024-04-29 12:16] LABS: Lactic Sepsis W/Reflex 1.8 mmol/L (0.5-2.2)
[2024-04-29 12:25] LABS: Alanine Aminotransferase 11 U/L (0-33); Albumin Level 4.2 g/dL (3.5-5.2); Alkaline Phosphatase 160 U/L (35-105); Anion Gap 15.4 (5-19); Aspartate Amino Transferase 15 U/L (0-32); Blood Urea Nitrogen 15 mg/dL (8-23); Calcium 9.2 mg/dL (8.5-10.5); Carbon Dioxide 28 mmol/L (22-29); Chloride 103 mmol/L (98-107); Creatinine Clr Calc Pharmacy 82.4113; Globulin 2.5 g/dL (1.3-4.6); Glomerular Filtration Rate 83.2 mL/min (90-130); Glucose 99 mg/dL (65-115); NT Pro B Type Natriuretic Pept 42 pg/mL (0-125); Osmolality Calculated 297 mOsm/kg (285-295); Potassium 3.4 mmol/L (3.5-5.1); Sodium 143 mmol/L (136-145); Total Bilirubin 0.4 mg/dL (0.15-1.2); Total Protein 6.7 g/dL (6.6-8.7)
--- NOTE | 2024-04-29 12:39 | PC.NURSE ---
THIS NURSE BROUGHT PT BACK TO ROOM. WHEN PT WAS HOOKED UP TO VITAL SIGNS, PT OXYGEN SATURATION WAS 72% ON ROOM AIR. PT PLACED ON 3L AND RECOVERED TO 98%. DR. KNOWLES NOTIFIED.
--- NOTE | 2024-04-29 12:48 | W.ED.SOB ---
HPI - SOB/Dyspnea General: Chief Complaint: Shortness of Breath/Dyspnea Stated Complaint: SOB Time Seen by Provider: 04/29/24 11:46 History of Present Illness: HPI Narrative: 68-year-old woman with a history of asthma/COPD and an ex-smoker who presents to the emergency room with worsening shortness of breath. She has been getting worse over the last 3 months. She has been to urgent care 3 times and been treated with steroids and antibiotics. She says she is not officially diagnosed with COPD but she has had asthma for many years. This likely would mean that she has chronic obstructive pulmonary disease. On presentation she is very tight and wheezy. Her sats are in the low 90s at rest but when she got up and went back to the room and sat down in the bed her oxygen saturations dropped down into the 70s and took 3 L nasal cannula to get her back up. She says she is been dropping at home. She has had a cough. No chest pain. No lower extremity swelling. No altered mental status. No focal motor deficits. No abdominal pain. No nausea or vomiting. Related Data Previous Rx's ?Medication ?Instructions ?Recorded hydrochlorothiazide 25 mg tablet 25 mg PO DAILY #90 tabs 02/26/23 albuterol sulfate 90 mcg/actuation 2 puff inhalation Q4H PRN 11/11/23 aerosol inhaler Shortness Of Breath 30 days #8.5 grams amoxicillin 875 mg tablet 875 mg PO BID #20 tabs 04/25/24 prednisone 20 mg tablet 20 mg PO .COMPLEX #20 tabs 04/25/24 Allergies Allergy/AdvReac Type Severity Reaction Status Date / Time No Known Allergies Allergy Verified 03/09/24 14:45 Review of Systems Narrative: Constitutional symptoms: Negative except as documented in HPI. Skin symptoms: Negative except as documented in HPI. Eye symptoms: Negative except as documented in HPI. ENMT symptoms: Negative except as documented in HPI. Respiratory symptoms: Negative except as documented in HPI. Cardiovascular symptoms: Negative except as documented in HPI. Gastrointestinal symptoms: Negative except as documented in HPI. Genitourinary symptoms: Negative except as documented in HPI. Musculoskeletal symptoms: Negative except as documented in HPI. Neurologic symptoms: Negative except as documented in HPI. Psychiatric symptoms: Negative except as documented in HPI. Endocrine symptoms: Negative except as documented in HPI. PFSH ED PFSH: Medical History Mild persistent asthma Venous insufficiency of both lower extremities Bilateral renal stones History of abdominal hernia Hypertension Surgical History History of lithotripsy History of tonsillectomy and adenoidectomy History of tubal ligation Family History Mother Cancer THYROID AND LUNG CANCER Father , IN HIS 60'S Sepsis Social History Smoking and tobacco/nicotine status: former use of tobacco/nicotine Alcohol intake: never Substance/Drug Use: never Adopted: No Caregiver/support person: No Lives independently: No Household members: family Marital status: Current occupational status: employed Do you think of yourself as: Straight/Heterosexual Current gender identity: Female Physical Exam Narrative: EXAM NARRATIVE: General: Alert, moderate distress. Skin: Warm, dry. Head: Normocephalic, atraumatic. Neck: Supple, trachea midline. Eye: Extraocular movements are intact. Ears, nose, mouth and throat: Oral mucosa moist. Cardiovascular: Regular rate and rhythm, Normal peripheral perfusion. Respiratory: coarse, scattered wheeze, moderate increased wob. tachypnea, prolonged expiratory phase. breath sounds are equal, Symmetrical chest wall expansion. Gastrointestinal: Soft, Nontender, Non distended, Normal bowel sounds. Musculoskeletal: Normal ROM, no deformity. Neurological: Alert and oriented, and situation, No focal neurological deficit observed. Psychiatric: Cooperative, appropriate mood & affect. Course Vital Signs: Vital signs: Vital Signs Temperature 97.6 F 04/29/24 11:37 Pulse Rate 96 04/29/24 13:08 Respiratory Rate 18 04/29/24 13:08 Blood Pressure 151/80 04/29/24 11:37 Pulse Oximetry 98 04/29/24 13:08 Oxygen Delivery Me thod Nasal Cannula 04/29/24 13:08 Oxygen Flow Rate 2.5 04/29/24 13:08 MDM - SOB/Dyspnea Medical Decision Making Differential diagnosis for patient with shortness of breath includes but is not limited to and based on the above HPI, review of systems and physical exam: Pneumonia. Bronchitis. Asthma or COPD with acute exacerbation. Acute coronary syndrome / OH. Pulmonary embolism. Anxiety. Congestive heart failure. Viral infections including influenza and Covid-19. Atrial fibrillation. Anxiety. Pleural effusion. Pneumothorax. Orders placed to evaluate differential diagnosis based on the above differential, HPI and physical exam EKG: Time 1136. Rate 97. Normal sinus rhythm, No ST-T changes, no ectopy, right bundle branch block, This was reviewed and interpreted by myself the ER physician at 1140 Chest x-ray: Mild cardiomegaly. Calcified granulomatous disease that is stable. No acute process. No infiltrate. No pneumothorax. This was reviewed and interpreted by myself the emergency room physician. I also reviewed the radiology report. Lab Review: Laboratory results were reviewed and interpreted by myself the emergency room physician. No leukocytosis. No anemia. No renal failure. I reviewed the patient's medical record. Reexamination: Patient is remained stable on 3 L nasal cannula. Some improvement with breathing treatments. No altered mental status. No focal motor deficits. Patient is not on any kind of controller medications. Likely with this admission she needs her pulmonary toilet adjusted. Consultation: I spoke with Dr. Mitchell who is on-call for the hospitalist service who agrees to admission. Assessment and plan: COPD with acute exacerbation Acute hypoxemic respiratory failure ?2 breathing treatments and 125 mg IV Solu-Medrol -I discussed the patient with the hospitalist on-call who is admitting the patient. - Discussed findings and plan with patient. Answered any questions. - All laboratory values were reviewed and interpreted personally by myself, the ER physician - All imaging was reviewed and interpreted personally by myself, the ER physician. - Evaluation and treatment of this problem were appropriate in the emergency setting Lab Data 04/29/24 11:48 04/29/24 11:48 Labs/Radiology: Radiology Impressions Chest X-Ray 04/29/24 11:29 IMPRESSION: Stable chest without acute abnormality. Laboratory Results WBC 8.68 10^3/uL (3.29-11.43) 04/29/24 11:48 RBC 4.73 10^6/uL (3.85-5.65) 04/29/24 11:48 Hgb 13.80 g/dL (11.27-16.99) 04/29/24 11:48 Hct 45.0 % (36-47) 04/29/24 11:48 MCV 95.1 fl (85-98) 04/29/24 11:48 MCH 29.2 pg (27-33) 04/29/24 11:48 MCHC 30.7 g/dL (30-55) 04/29/24 11:48 RDW 15.2 % (12.1-15.1) H 04/29/24 11:48 Plt Count 215 10^3/cmm (157-399) 04/29/24 11:48 MPV 11.3 fL (7.4-10.4) H 04/29/24 11:48 Neut % (Auto) 69.6 % 04/29/24 11:48 Lymph % (Auto) 16.6 % 04/29/24 11:48 [place]win % (Auto) 6.2 % 04/29/24 11:48 Eos % (Auto) 6.5 % 04/29/24 11:48 Baso % (Auto) 0.9 % 04/29/24 11:48 Neut # (Auto) 6.04 10^3/uL (1.8-7.7) 04/29/24 11:48 Lymph # (Auto) 1.4 10^3/uL (0.8-4.8) 04/29/24 11:48 Irwin # (Auto) 0.5 10^3/uL (0.2-0.9) 04/29/24 11:48 Eos # (Auto) 0.6 10^3/uL (0.0-0.8) 04/29/24 11:48 Baso # (Auto) 0.1 10^3/uL (0.0-0.1) 04/29/24 11:48 Nucleated RBC % (auto) 0 % 04/29/24 11:48 Nucleated RBCs # 0.0 /100WBC 04/29/24 11:48 Specimen Type Arterial 04/29/24 12:50 Sample Site Radial, left 04/29/24 12:50 ABG pH 7.41 (7.35-7.45) 04/29/24 12:50 ABG pCO2 47.7 mmHg (35-45) H 04/29/24 12:50 ABG pO2 85.4 mmHg (80.0-100.0) 04/29/24 12:50 ABG HCO3 30.0 mmol/L (22-26) H 04/29/24 12:50 ABG O2 Saturation 97.2 04/29/24 12:50 ABG Base Excess 4.4 mmol/L (-2.0-2.0) H 04/29/24 12:50 Silvio Test Pos 04/29/24 12:50 A-a O2 Gradient 0.4 mmHg (5-10) L 04/29/24 12:50 Hematocrit 42.7 % (37-47) 04/29/24 12:50 Hgb O2 Saturation 95.3 % (95-100) 04/29/24 12:50 Carboxyhemoglobin 1.0 %THgb (0.4-20.1) 04/29/24 12:50 Methemoglobin 0.9 % (0.4-1.5) 04/29/24 12:50 Total Hemoglobin 13.9 g/dL (12-16) 04/29/24 12:50 Sodium 144.0 mmol/L (131-143) H 04/29/24 12:50 Potassium 3.1 mmol/L (3.5-5.0) L 04/29/24 12:50 Glucose 84.0 mg/dL (70-115) 04/29/24 12:50 Ionized Calcium 1.2 mmol/L (1.1-1.4) 04/29/24 12:50 O2 Delivery Device Nc 04/29/24 12:50 O2 Liters/Min 2.5 % 04/29/24 12:50 Sewing Machine Operator Floorperson ID [place] 04/29/24 12:50 Sodium 143 mmol/L (136-145) 04/29/24 11:48 Potassium 3.4 mmol/L (3.5-5.1) L 04/29/24 11:48 Chloride 103 mmol/L (98-107) 04/29/24 11:48 Carbon Dioxide 28 mmol/L (22-29) 04/29/24 11:48 Anion Gap 15.4 (5-19) 04/29/24 11:48 BUN 15 mg/dL (8-23) 04/29/24 11:48 Creatinine 0.7 mg/dL (0.5-0.9) 04/29/24 11:48 GFR Calculation 83.2 mL/min (90-130) L 04/29/24 11:48 Glucose 99 mg/dL (65-115) 04/29/24 11:48 Calculated Osmolality 297 mOsm/kg (285-295) H 04/29/24 11:48 Lactic Acid 1.8 mmol/L (0.5-2.2) 04/29/24 11:48 Calcium 9.2 mg/dL (8.5-10.5) 04/29/24 11:48 Total Bilirubin 0.4 mg/dL (0.15-1.2) 04/29/24 11:48 AST 15 U/L (0-32) 04/29/24 11:48 ALT 11 U/L (0-33) 04/29/24 11:48 Alkaline Phosphatase 160 U/L (35-105) H 04/29/24 11:48 Troponin T Baseline 8 ng/L (0-10) 04/29/24 11:48 NT-Pro-B Natriuret Pep 42 pg/mL (0-125) 04/29/24 11:48 Total Protein 6.7 g/dL (6.6-8.7) 04/29/24 11:48 Albumin 4.2 g/dL (3.5-5.2) 04/29/24 11:48 Globulin 2.5 g/dL (1.3-4.6) 04/29/24 11:48 All radiology interpretation(s) finalized by discharge Discharge Plan Discharge Patient Disposition: Admitted As Inpatient Clinical Impression: COPD with acute exacerbation, Hypoxemia Condition: Stable Coding Level of Care Code ED Security Tester for Héctor Keys
[2024-04-29 13:01] LABS: ABG PCO2 47.7 mmHg (35-45); ABG PH Result 7.41 (7.35-7.45); Alveolar-Arterial Oxygen Gradi 0.4 mmHg (5-10); Arterial Blood Gas Hematocrit 42.7 % (37-47); Base Excess ABG 4.4 mmol/L (-2.0-2.0); Blood Gas Allen Test Pos; Blood Gas LPM 2.5 %; Blood Gas Operator Identificat WALCI; Blood Gas Sample Site Radial, left; Blood Gas Sample Type Arterial; HGB O2 Sat 95.3 % (95-100); Ionized Calcium Level - ABG 1.2 mmol/L (1.1-1.4); Methemoglobin 0.9 % (0.4-1.5); Oxygen Device NC; Oxygen Saturation ABG 97.2; PO2 ABG 85.4 mmHg (80.0-100.0); Potassium Level - ABG 3.1 mmol/L (3.5-5.0); Total Hemoglobin 13.9 g/dL (12-16)
[2024-04-29] MEDS: methylPREDNISolone sod succ 125 mg/2 mL INJ IVP (13:02)
[2024-04-29] MEDS: albuterol 2.5 mg/3 mL Neb INHALATION (13:10)
[2024-04-29] MEDS: ipratropium-albuterol 3 mL Neb INHALATION ×2 (13:10→21:07)
--- NOTE | 2024-04-29 13:49 | ECG_ITS ---
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 Measurements Intervals [place] Rate: 103 P: 49 AR: 146 QRS: -44 QRSD: 138 T: 11 QT: 343 QTc: 450 Interpretive Statements SINUS TACHYCARDIA WITH OCCASIONAL VENTRICULAR PREMATURE COMPLEXES WITH OCCASIONAL SUPRAVENTRICULAR PREMATURE COMPLEXES LEFT AXIS DEVIATION [QRS AXIS < -30] RIGHT BUNDLE BRANCH BLOCK [120+ ms QRS DURATION, UPRIGHT V1, 40+ ms S IN I/aVL/V4/V5/V6] Compared to ECG 04/29/2024 11:36:09 Ventricular premature complex(es) now present Sinus rhythm no longer present Electronically Signed On 04-30-2024 19:31:22 GREENHOUSE TECHNICIAN by Patel Oleary M.D. [id number]
[2024-04-29 14:13] LABS: Troponin 5 2HR 7.45 ng/L (0-10)
[2024-04-29 14:21] LABS: Troponin 5 2HR Delta -0.55 ABS# (0-10)
--- NOTE | 2024-04-29 14:52 | USCV_ITS ---
Rasheeda Child Age: 68 Gender: F : 1955 Exam Date: 04/29/2024 15:26 Ordering Phys: Leobardo Mitchell MD Technologist: Logan James Exam Location[place] [facility] [place]ication: chf BP: 151 / 80 HR: 96 Rhythm: Sinus Technical Quality: Adequate MEASUREMENTS (Male / Female) Normal Values 2D ECHO LV Diastolic Diameter PLAX 3.9 cm 4.2 - 5.9 / 3.9 - 5.3 cm IVS Diastolic Thickness 1.4 cm 0.6 - 1.0 / 0.6 - 0.9 cm IVS Systolic Thickness 1.4 cm LVPW Diastolic Thickness 1.8 cm 0.6 - 1.0 / 0.6 - 0.9 cm LVPW Systolic Thickness 1.7 cm LVOT Diameter 2.1 cm LV Ejection Fraction 2D Teich 58.1 % LV Ejection Fraction MOD 4C 74.2 % LV Ejection Fraction MOD 2C 70.9 % LV Ejection Fraction 2C AL 72.9 % LA Diameter 3.7 cm RA Systolic Volume 4C AL 28.4 ml RA Systolic Volume 4C MOD 28.3 ml LA Sys Volume AL 43.9 cm cubed LA Sys Volume Index AL 19.2 cm cubed/m squared Aorta at Sinotubular Diameter 2.7 cm IVC Diameter 1.4 cm M-MODE LA Ao Ratio MM 1.2 AV Cusp Separation MM 1.3 cm DOPPLER AV Peak Velocity 183.6 cm/s LVOT Peak Velocity 154.0 cm/s AV Area Cont Eq vti 2.7 cm squared AV Area Cont Eq pk 2.9 cm squared MV Peak Velocity 139.0 cm/s MV Area PHT 7.5 cm squared Mitral E to A Ratio 0.5 TV Peak Velocity 204.5 cm/s TR Peak Velocity 209.0 cm/s TR Peak Gradient 17.5 mmHg TR Mean Velocity 181.0 cm/s TR Mean Gradient 13.5 mmHg TR Velocity Time Integral 62.1 cm PV Peak Velocity 125.0 cm/s RV Ejection Time 0.3 s FINDINGS Left Ventricle Left ventricle is normal in size. LV systolic function is normal with EF of 55-60%. No regional wall motion abnormalities are seen. Grade 1 diastolic dysfunction. Right Ventricle Normal in size and function Right Atrium Normal in size Left Atrium Normal in size Mitral Valve Grossly normal. Mild mitral regurgitation. Aortic Valve Structurally normal aortic valve. Mild aortic stenosis with mean gradient of 11 mmHg. Tricuspid Valve Mild tricuspid regurgitation. Insufficient TR jet to calculate RVSP Pulmonic Valve Not well visualized Pericardium Normal Aorta Normal in size IVC Appears to be normal CONCLUSIONS LV systolic function is normal with EF of 55 to 60%. Grade 1 diastolic dysfunction. Mild mitral regurgitation. Mild aortic stenosis with mean gradient of 11 mmHg. Mild tricuspid regurgitation. No comparison studies are available. Patel Oleary MD (Electronically Signed) Final Date: 30 April 2024 12:02 S
--- NOTE | 2024-04-29 14:53 | P.HP_ITS ---
Providers/Chief Complaint 2 Primary Care Provider: Johnnie Theodore MD Chief Complaint: SOB History of Present Illness Rasheeda Child is a 68 year old female with past medical of asthma, hypertension, COVID-19 in 202 who presents to the ER today because of difficulty in breathing which has been getting worse over last few months even though she has tried multiple courses of steroids and antibiotics. Difficulty in breathing gets worse on minimal exertion and laying down. She states she has not been able to lie down for many years as whenever she would want to lie down she would feel as if she was drowning. Denies any nausea, vomiting, headache, sick contacts, fevers. At home today her saturations down to low 70s and she appeared to the ER. Presentation to the ER she was saturating 90% at rest but dropping down to low 70s on minimal exertion hence hospitalist service was requested. Review of Systems 2 General: Reports: 10 or more systems reviewed and unremarkable except in HPI and below Const: Denies: fever(s), chills, body aches, change in appetite, change in weight, malaise, night sweats, diaphoresis, change in sleep pattern, daytime sleepiness or snoring Eyes: Denies: change in vision, blurry vision, photophobia, eye discomfort or eye discharge ENMT: Denies: throat pain, enlarged tonsils, hoarseness, mouth pain, oral sores, dry mouth, tinnitus, nasal congestion or post nasal drip Card: Denies: chest pain, palpitations, irregular heart rhythm, edema, swelling of feet/ankles, lightheadedness, syncope, pre-syncope, dyspnea on exertion, orthopnea, leg pain with exertion or acrocyanosis Resp: Denies: dyspnea, productive cough, non-productive cough, wheezing, stridor, pain on inspiration, change in phlegm color, hemoptysis or chest congestion GI: Denies: abdominal pain, nausea, vomiting, hematemesis, coffee ground emesis, dysphagia, heartburn, diarrhea, constipation, bloating, GI cramping, change in bowel habits, pain on defecation, hematochezia or melena : Denies: flank pain, dysuria, urinary frequency, urinary urgency, urinary hesitancy, nocturia or hematuria Musc: Denies: neck pain, back pain, extremity pain, joint pain, joint swelling, joint redness, joint stiffness or limited range of motion Neuro: Denies: headache(s), numbness in extremities, weakness in extremities, sensory changes, lack of coordination, difficulty walking, frequent falls, dizziness, vertigo, confusion, Slurred speech present, difficulty communicating thoughts or seizure-like activity Psych: Denies: anxiety, depression, mood swings, panic attacks, hopelessness or irritability Endo: Denies: polyuria, polydipsia, tired all the time, cold intolerance, excessive sweating, flushing or heat intolerance Sotero/Lymph: Denies: easy bruising or easy bleeding All/Imm: Denies: tongue swelling, facial swelling or acute wheezing Medications/Allergies Home Medications ?Medication ?Instructions ?Recorded ?Confirmed ?Last Taken ?Type hydrochlorothiazide 25 mg tablet 25 mg PO DAILY #90 ta bs 02/26/23 04/29/24 Unknown Rx albuterol sulfate 90 mcg/actuation 2 puff inhalation Q 4H PRN 11/11/23 04/29/24 Unknown Rx aerosol inhaler Shortness Of Breath 30 days #8.5 grams amoxicillin 875 mg tablet 875 mg PO BID #20 tabs 04/2504/29/24 Unknown Rx prednisone 20 mg tablet 20 mg PO .COMPLEX #20 tabs 0 04/25/24 04/29/24 Unknown Rx Allergies Allergy/AdvReac Type Severity Reaction Status Date / Time MARLEE Inhibitors AdvReac Intermediate Angioedema Verified 04/29/24 16:30 PFSH Acute 2 PFSH: Medical History (Updated 04/29/24 @ 17:19 by Leobardo Mitchell MD) Allergies Mild persistent asthma Venous insufficiency of both lower extremities Bilateral renal stones History of abdominal hernia Hypertension Surgical History (Updated 04/29/24 @ 17:15 by Leobardo Mitchell MD) H/O umbilical hernia repair x2 History of lithotripsy History of tonsillectomy and adenoidectomy History of tubal ligation Family History Mother Cancer THYROID AND LUNG CANCER Father , IN HIS 60'S Sepsis Social History Smoking and tobacco/nicotine status: former use of tobacco/nicotine Alcohol intake: never Substance/Drug Use: never Adopted: No Caregiver/support person: No Lives independently: No Household members: family Marital status: Current occupational status: employed Do you think of yourself as: Straight/Heterosexual Current gender identity: Female Vitals/I&O/Wt Last Vital Signs Temp 97.6 F 04/29/24 11:37 Pulse 99 04/29/24 13:19 Resp 18 04/29/24 13:08 BP 151/80 04/29/24 11:37 Pulse Ox 94 04/29/24 13:19 O2 Del Method Room Air 04/29/24 13:19 O2 Flow Rate 2.5 04/29/24 13:08 Weight last 48 hrs Weight 108.409 kg Physical Exam 2 Narrative: General: No acute distress, AO x3, anxious, morbidly obese HEENT: PERRLA, pupils bilaterally equal and reactive Chest: Bilateral bronchial breath sounds all lung knox with occasional rhonchi and crackles all over lung knox diffusely CVS: S1-S2 regular, no murmurs, no tachycardia, no gallops, no rubs Abdomen: Soft, nontender, no organomegaly, bowel sounds present Neuro: No focal deficits, no facial deformity, AO x3, power 5/5 in all limbs Data 04/29/24 11:48 04/29/24 11:48 A&P Assessment and plan (1) Hypoxemia: (2) COPD with acute exacerbation: (3) Mild persistent asthma: (4) Orthopnea: (5) Hypertension: Qualifiers: Hypertension type: essential hypertension Qualified Code(s): I10 - Essential (primary) hypertension (6) Failure of outpatient treatment: Plan Shortness of breath: Hypoxic respiratory failure: Failure to outpatient treatment. Most likely in setting of COPD exacerbation with concerns for possible decompensated congestive heart failure. Patient does complain of orthopnea. Check sputum culture, procalcitonin, MRSA swab, D-dimer. COVID-19/flu/RSV swab negative. Oxygen supplementation keeping saturation over 90%. Solu-Medrol 125 mg one-time followed by 40 mg IV every 8 hours. Nebulization with Pulmicort twice daily, DuoNeb every 6 hour. Check sputum culture. Empirically start patient on IV ceftriaxone and oral azithromycin to cover for community-acquired pneumonia. Check echocardiogram. IV Lasix 40 mg one-time. Strict input output charting, daily weights. Fluid restriction to less than 1500 cc. Hypertension: Goal blood pressure less than 140/90 mmHg. Used to be on lisinopril in the past but was discontinued because of concerns for angioedema. Currently only on hydrochlorothiazide. Monitor blood pressures. Will start antihypertensive depending on goal blood pressures. CODE STATUS: Discussed in detail with the patient. Daughter will be the DPOA. Full code. Cardiac diet Protonix OPD prophylaxis Heparin 5000 Q12 hourly for DVT prophylaxis. PDMP PDMP Reviewed: Not Reviewed Attestations 2 Medical Necessity Statement*: Admission for more than 2 midnights for management of shortness of breath with hypoxic respiratory failure in setting of COPD exacerbation, concerns of congestive heart failure with failure to outpatient treatment Diagnoses Hypoxemia R09.02 COPD with acute exacerbation J44.1 Mild persistent asthma J45.30 Orthopnea R06.01 Essential hypertension I10 Hypertension type: essential hypertension Failure of outpatient treatment Z78.9
[2024-04-29 15:11] LABS: Lactic Sepsis W/Reflex 1.7 mmol/L (0.5-2.2)
[2024-04-29 15:18] LABS: D Dimer 0.56 ug/mLFEU (0-0.59)
[2024-04-29 15:32] LABS: Procalcitonin 0.05 ng/mL (0-0.5)
[2024-04-29] MEDS: azithromycin 250 mg Tablet 500 MG PO (15:54)
[2024-04-29] MEDS: potassium chloride ER 20 mEq Tablet 40 MEQ PO (15:55)
[2024-04-29] MEDS: cefTRIAXone 1,000 mg SDV 1000 MG IVP (15:57)
[2024-04-29 16:10] LABS: Influenza A NEGATIVE (Negative); Influenza B NEGATIVE (Negative); Respiratory Syncytial Virus Ce NEGATIVE (Negative); SARS-CoV-2 PCR NEGATIVE (Negative)
--- NOTE | 2024-04-29 17:38 | ECG_ITS ---
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 Measurements Intervals [place] Rate: 106 P: 22 KS: 163 QRS: -68 QRSD: 142 T: 3 QT: 334 QTc: 445 Interpretive Statements SINUS TACHYCARDIA WITH OCCASIONAL VENTRICULAR PREMATURE COMPLEXES INTRAVENTRICULAR CONDUCTION DELAY [130+ ms QRS DURATION] PROBABLE LATERAL MYOCARDIAL INFARCTION , OF INDETERMINATE AGE [35 ms Q WAVE IN I/aVL/V5/V6] Compared to ECG 04/29/2024 13:49:32 Intraventricular conduction delay now present Myocardial infarct finding now present Left-axis deviation no longer present Right bundle-branch block no longer present Electronically Signed On 04-30-2024 19:29:53 COMMERCIAL DIVER by Patel Oleary M.D. [email or web address] [id number]
[2024-04-29 18:03] LABS: Iron 46 ug/dL (37-145); Percent Saturation 15.9 % (20-50); Thyroid Stimulating Hormone 1.66 uIU/mL (0.27-4.20); Total Iron Binding Capacity 289 mcg/dl; Unsaturated Iron Binding 243 ug/dL (112-347); Vitamin B12 1084 pg/mL (232-1245)
[2024-04-29 18:30] LABS: Estmated Average Glucose 103; Hemoglobin A1C 5.2 % (4.0-6.0)
[2024-04-29 18:37] LABS: Troponin 5 6HR 6.43 ng/L (0-10)
[2024-04-29 18:39] LABS: Troponin 5 6HR Delta -1.57 ng/L (0-12)
[2024-04-29] MEDS: pantoprazole 40 mg SDV IVP (18:41)
[2024-04-29] MEDS: heparin 5,000 unit/mL INJ 1 mL 5000 UNIT SUBCUT (18:41)
[2024-04-29] MEDS: docusate sodium 100 mg Capsule PO (18:41)
[2024-04-29] MEDS: FUROsemide 10 mg/mL SDV 4mL 40 MG IVP (18:41)
[2024-04-29] MEDS: methylPREDNISolone sod succ 40 mg/mL INJ IVP (20:23)
[2024-04-29] MEDS: budesonide 0.5 mg/2 mL Neb INHALATION (21:05)
[2024-04-29 22:48] LABS: MRSA PCR OZH (swab) NOT DETECTED (Not Detecte)
[2024-04-30] VITALS (15 sets, daily range): BP systolic 110–164; BP diastolic 62–77; PULSE 64–105; RESP 14–18; TEMP 36.6–37; O2SAT 88–95; BMI 38.7
[2024-04-30] MEDS: ipratropium-albuterol 3 mL Neb INHALATION ×3 (01:48→13:19)
[2024-04-30] MEDS: methylPREDNISolone sod succ 40 mg/mL INJ IVP ×3 (04:24→20:30)
[2024-04-30] MEDS: heparin 5,000 unit/mL INJ 1 mL 5000 UNIT SUBCUT ×2 (04:24→16:34)
[2024-04-30 05:27] LABS: Hematocrit 42.8 % (36-47); Lymphocytes # 0.6 10^3/uL (0.8-4.8); Lymphocytes % 7.5 %; Mean Corpuscular HGB Conc 31.5 g/dL (30-55); Mean Corpuscular Hemoglobin 29.4 pg (27-33); Mean Corpuscular Volume 93.2 fl (85-98); Monocytes # 0.1 10^3/uL (0.2-0.9); Monocytes % 1.4 %; Neutrophils # 7.73 10^3/uL (1.8-7.7); Neutrophils % 90.7 %; Nucleated Red Blood Cells % 0 %; Platelet Count 206 10^3/cmm (157-399); Red Blood Count 4.59 10^6/uL (3.85-5.65); Red Cell Distribution Width 15.3 % (12.1-15.1); White Blood Count 8.52 10^3/uL (3.29-11.43)
[2024-04-30 06:06] LABS: Procalcitonin 0.04 ng/mL (0-0.5)
[2024-04-30 06:12] LABS: Folate Level 10.2 ng/mL (4.8-37.3)
[2024-04-30 06:20] LABS: Alanine Aminotransferase 11 U/L (0-33); Alkaline Phosphatase 142 U/L (35-105); Anion Gap 14.9 (5-19); Aspartate Amino Transferase 11 U/L (0-32); Blood Urea Nitrogen 15 mg/dL (8-23); Calcium 9.2 mg/dL (8.5-10.5); Carbon Dioxide 27 mmol/L (22-29); Chloride 103 mmol/L (98-107); Cholesterol 180 mg/dL (0-200); Creatinine Clr Calc Pharmacy 81.2545; Globulin 2.5 g/dL (1.3-4.6); Glomerular Filtration Rate 99.4 mL/min (90-130); Glucose 152 mg/dL (65-115); HDL Cholesterol 75 mg/dL (60-100); LDL Cholesterol Calculated 96 mg/dL (50-129); LDL HDL Ratio 1.28 RATIO (0.00-3.22); Osmolality Calculated 298 mOsm/kg (285-295); Phosphorus 2.1 mg/dL (2.5-4.5); Sodium 142 mmol/L (136-145); Total Bilirubin 0.2 mg/dL (0.15-1.2); Total Protein 6.5 g/dL (6.6-8.7); Triglycerides 43 mg/dL (0-150)
[2024-04-30 06:21] LABS: Potassium 2.9 mmol/L (3.5-5.1)
[2024-04-30] MEDS: lidocaine 1% 5 ML in potassium chloride premix 100 ML 26.25 ML IV (07:06)
[2024-04-30] MEDS: budesonide 0.5 mg/2 mL Neb INHALATION ×2 (07:28→20:24)
[2024-04-30] MEDS: docusate sodium 100 mg Capsule PO ×2 (09:07→17:48)
[2024-04-30] MEDS: azithromycin 250 mg Tablet 500 MG PO (09:07)
--- NOTE | 2024-04-30 10:48 | PC.CHAP ---
Pastoral Care Encounter/Spiritual Assessment Type of Contact [] Declined icing and glaze maker visit [] Patient/Family/Request visit [] Outpatient visit [] Follow-up visit [] Physician referral [] Code/Alert [] Routine visit [] Staff referral [] Actively dying [X] Patient sleeping [] Family support [] [] Out of room [] Palliative care [] [] Receiving care in room [] Pre-surgical visit [] Trauma [] Long length of stay [] ICU visit [] Other: Relational/Emotional Strength [] Patient feels connected with others/family/visitors/staff [] Distress [] Loneliness/isolation [] Abandonment Spirituality of Patient [] Person of Patrica [] Attends Faith of their Patrica [] Believes in Prayer [] Reads Bible or Advent materials [] There are Spiritual issues to be addressed Glue Bone Crusher Interventions [] Prayer [] Active listening [] Non-anxious presence [] Spiritual/emotional support [] Crisis/trauma care [] Spiritual counseling [] Bereavement support [] Provided bereavement packet [] Provided Bible/devotional materials [] Provided toy/stuffed animal, coloring book to patient or family member [] Provided Communion [] Anointing/[place] [] Salvation [] Completed spiritual assessment [] Other: Impact on Illness or Injury [] Angry [] Fearful [] Anxious [] Often cries [] Exhaustion [] Unable to work [] Unable to attend muslim [] Unable to walk/stand [] Unable to read [] Unable to drive [] Unable to eat/drink [] Unable to sleep [] Unable to be with family [] Patient intubated [] Other: Summary Time spent with patient
[2024-04-30] MEDS: potassium chloride ER 20 mEq Tablet 120 MEQ PO (13:29)
[2024-04-30] MEDS: metoprolol tartrate 50 mg Tablet PO ×2 (13:29→20:30)
[2024-04-30] MEDS: amlodipine 5 mg Tablet PO (13:30)
--- NOTE | 2024-04-30 13:36 | P.DS_ITS ---
Discharge Providers Date of Admission: 04/29/24 15:47 Date of Discharge: April 30, 2024 Attending Provider at Admission: Leobardo Mitchell MD Attending Provider at Discharge: Leobardo Mitchell MD Primary Care Provider: Johnnie Theodore MD Diagnoses at Discharge Discharge Diagnosis (1) Hypoxemia: Status: Acute (2) COPD with acute exacerbation: Status: Acute (3) Mild persistent asthma: Status: Acute (4) Orthopnea: Status: Acute (5) Hypertension: Status: Acute Qualifiers: Hypertension type: essential hypertension Qualified Code(s): I10 - Essential (primary) hypertension (6) Failure of outpatient treatment: Status: Acute Reason for Visit Reason for Visit: SOB Discharge Data Studies Completed and Pending Completed Studies During Hospitalization Category Date Time Status XR chest 1V portable [id number] Stat Exams 04/29/24 11:29 Completed CV. echo complete* [id number] Routine Ultrasound 04/29/24 14:52 Completed Pending at discharge Category Date Time Status BMP [Basic Metabolic Panel] Routine Lab 04/30/24 16:00 Ordered Complete Blood Count w/Auto AM LABS Lab 05/01/24 04:00 Ordered Complete Blood Count w/Auto AM LABS Lab 05/02/24 04:00 Ordered Comprehensive Metabolic Panel AM LABS Lab 05/01/24 04:00 Ordered Comprehensive Metabolic Panel AM LABS Lab 05/02/24 04:00 Ordered Magnesium AM LABS Lab 05/01/24 04:00 Ordered Magnesium AM LABS Lab 05/02/24 04:00 Ordered Phosphorus AM LABS Lab 05/01/24 04:00 Ordered Phosphorus AM LABS Lab 05/02/24 04:00 Ordered Sputum Culture and Gram Stain Stat Lab 04/29/24 16:28 Uncollected Urinalysis Routine Lab 04/29/24 17:12 Ordered Radiology Impressions Chest X-Ray 04/29/24 11:29 IMPRESSION: Stable chest without acute abnormality. Laboratory Results WBC 8.52 10^3/uL (3.29-11.43) 04/30/24 04:49 RBC 4.59 10^6/uL (3.85-5.65) 04/30/24 04:49 Hgb 13.50 g/dL (11.27-16.99) 04/30/24 04:49 Hct 42.8 % (36-47) 04/30/24 04:49 MCV 93.2 fl (85-98) 04/30/24 04:49 MCH 29.4 pg (27-33) 04/30/24 04:49 MCHC 31.5 g/dL (30-55) 04/30/24 04:49 RDW 15.3 % (12.1-15.1) H 04/30/24 04:49 Plt Count 206 10^3/cmm (157-399) 04/30/24 04:49 MPV 12.0 fL (7.4-10.4) H 04/30/24 04:49 Neut % (Auto) 90.7 % 04/30/24 04:49 Lymph % (Auto) 7.5 % 04/30/24 04:49 [place] % (Auto) 1.4 % 04/30/24 04:49 Eos % (Auto) 0.0 % 04/30/24 04:49 Baso % (Auto) 0.0 % 04/30/24 04:49 Neut # (Auto) 7.73 10^3/uL (1.8-7.7) H 04/30/24 04:49 Lymph # (Auto) 0.6 10^3/uL (0.8-4.8) L 04/30/24 04:49 [place] # (Auto) 0.1 10^3/uL (0.2-0.9) L 04/30/24 04:49 Eos # (Auto) 0.0 10^3/uL (0.0-0.8) 04/30/24 04:49 Baso # (Auto) 0.0 10^3/uL (0.0-0.1) 04/30/24 04:49 Nucleated RBC % (auto) 0 % 04/30/24 04:49 Nucleated RBCs # 0.0 /100WBC 04/30/24 04:49 D-Dimer 0.56 ug/mLFEU (0-0.59) 04/29/24 11:48 Specimen Type Arterial 04/29/24 12:50 Sample Site Radial, left 04/29/24 12:50 ABG pH 7.41 (7.35-7.45) 04/29/24 12:50 ABG pCO2 47.7 mmHg (35-45) H 04/29/24 12:50 ABG pO2 85.4 mmHg (80.0-100.0) 04/29/24 12:50 ABG HCO3 30.0 mmol/L (22-26) H 04/29/24 12:50 ABG O2 Saturation 97.2 04/29/24 12:50 ABG Base Excess 4.4 mmol/L (-2.0-2.0) H 04/29/24 12:50 Silvio Test Pos 04/29/24 12:50 A-a O2 Gradient 0.4 mmHg (5-10) L 04/29/24 12:50 Hematocrit 42.7 % (37-47) 04/29/24 12:50 Hgb O2 Saturation 95.3 % (95-100) 04/29/24 12:50 Carboxyhemoglobin 1.0 %THgb (0.4-20.1) 04/29/24 12:50 Methemoglobin 0.9 % (0.4-1.5) 04/29/24 12:50 Total Hemoglobin 13.9 g/dL (12-16) 04/29/24 12:50 Sodium 144.0 mmol/L (131-143) H 04/29/24 12:50 Potassium 3.1 mmol/L (3.5-5.0) L 04/29/24 12:50 Glucose 84.0 mg/dL (70-115) 04/29/24 12:50 Ionized Calcium 1.2 mmol/L (1.1-1.4) 04/29/24 12:50 O2 Delivery Device Nc 04/29/24 12:50 O2 Liters/Min 2.5 % 04/29/24 12:50 Child Watch Attendant ID [place] 04/29/24 12:50 Sodium 142 mmol/L (136-145) 04/30/24 04:49 Potassium 2.9 mmol/L (3.5-5.1) L 04/30/24 04:49 Chloride 103 mmol/L (98-107) 04/30/24 04:49 Carbon Dioxide 27 mmol/L (22-29) 04/30/24 04:49 Anion Gap 14.9 (5-19) 04/30/24 04:49 BUN 15 mg/dL (8-23) 04/30/24 04:49 Creatinine 0.6 mg/dL (0.5-0.9) 04/30/24 04:49 GFR Calculation 99.4 mL/min (90-130) 04/30/24 04:49 Glucose 152 mg/dL (65-115) H 04/30/24 04:49 Estimat Average Glucose 103 04/29/24 11:48 Hemoglobin A1c 5.2 % (4.0-6.0) 04/29/24 11:48 Calculated Osmolality 298 mOsm/kg (285-295) H 04/30/24 04:49 Lactic Acid 1.7 mmol/L (0.5-2.2) 04/29/24 11:48 Lactic Acid 1.8 mmol/L (0.5-2.2) 04/29/24 11:48 Calcium 9.2 mg/dL (8.5-10.5) 04/30/24 04:49 Phosphorus 2.1 mg/dL (2.5-4.5) L 04/30/24 04:49 Magnesium 2.0 mg/dL (1.7-2.3) 04/30/24 04:49 Iron 46 ug/dL (37-145) 04/29/24 11:48 TIBC 289 mcg/dl 04/29/24 11:48 % Saturation 15.9 % (20-50) L 04/29/24 11:48 Unsat Iron Binding 243 ug/dL (112-347) 04/29/24 11:48 Total Bilirubin 0.2 mg/dL (0.15-1.2) 04/30/24 04:49 AST 11 U/L (0-32) 04/30/24 04:49 ALT 11 U/L (0-33) 04/30/24 04:49 Alkaline Phosphatase 142 U/L (35-105) H 04/30/24 04:49 Troponin T Baseline 8 ng/L (0-10) 04/29/24 11:48 Troponin T 120 Minute 7.45 ng/L (0-10) 04/29/24 13:45 Delta Troponin T -0.55 ABS# (0-10) L 04/29/24 13:45 Troponin T Hi Sens 6Hr 6.43 ng/L (0-10) 04/29/24 17:35 Troponin T Hi Sens 6Hr Delta -1.57 ng/L (0-12) L 04/29/24 17:35 NT-Pro-B Natriuret Pep 42 pg/mL (0-125) 04/29/24 11:48 Total Protein 6.5 g/dL (6.6-8.7) L 04/30/24 04:49 Albumin 4.0 g/dL (3.5-5.2) 04/30/24 04:49 Globulin 2.5 g/dL (1.3-4.6) 04/30/24 04:49 Triglycerides 43 mg/dL (0-150) 04/30/24 04:49 Triglycerides Cancelled 04/30/24 04:49 Cholesterol 180 mg/dL (0-200) 04/30/24 04:49 Cholesterol Cancelled 04/30/24 04:49 LDL Cholesterol, Calc 96 mg/dL (50-129) 04/30/24 04:49 LDL Cholesterol, Calc Cancelled 04/30/24 04:49 HDL Cholesterol 75 mg/dL (60-100) 04/30/24 04:49 HDL Cholesterol Cancelled 04/30/24 04:49 LDL/HDL Ratio 1.28 RATIO (0.00-3.22) 04/30/24 04:49 LDL/HDL Ratio Cancelled 04/30/24 04:49 Cholesterol/HDL Ratio 2.40 mg/dL (0.0-4.40) 04/30/24 04:49 Cholesterol/HDL Ratio Cancelled 04/30/24 04:49 Vitamin B12 1084 pg/mL (232-1245) 04/29/24 11:48 Folate 10.2 ng/mL (4.8-37.3) 04/30/24 04:49 Procalcitonin 0.04 ng/mL (0-0.5) 04/30/24 04:49 Procalcitonin Cancelled 04/30/24 04:49 TSH 1.66 uIU/mL (0.27-4.20) 04/29/24 11:48 Nasal MRSA (PCR) Not detected (Not Detecte) 04/29/24 19:03 Influenza A (PCR) Negative (Negative) 04/29/24 15:25 Influenza Type B (PCR) Negative (Negative) 04/29/24 15:25 RSV (PCR) Negative (Negative) 04/29/24 15:25 SARS-CoV-2 (PCR) Negative (Negative) 04/29/24 15:25 Vitals Last Vital Signs Temp 97.8 F 04/30/24 08:00 Pulse 95 04/30/24 13:31 Resp 18 04/30/24 13:31 BP 164/77 04/30/24 08:00 Pulse Ox 92 04/30/24 13:31 O2 Del Method Room Air 04/30/24 08:00 O2 Flow Rate 2.5 04/29/24 13:08 Discharge Plan Discharge Patient Disposition: Home Condition: Stable Prescriptions: New ipratropium-albuterol 0.5 mg-3 mg(2.5 mg base)/3 mL Solution For Nebulization 3 ml inhalation Q8H Qty: 180 0RF fluticasone furoate-vilanterol [Breo Ellipta] 100-25 mcg/dose blister with device 1 inh inhalation DAILY Qty: 60 0RF pantoprazole [Protonix] 40 mg tablet,delayed release (DR/EC) 40 mg PO QAM Qty: 14 0RF Rx Instructions: Twice daily for next 2 weeks followed by once daily budesonide 0.5 mg/2 mL Suspension For Nebulization 0.5 mg inhalation BID.RESPIRATORY Qty: 60 0RF amlodipine 5 mg Tablet 5 mg PO DAILY Qty: 30 0RF furosemide 20 mg Tablet 20 mg PO DAILY@0800 PRN (Reason: increased swelling in lower limbs) Qty: 14 0RF metoprolol tartrate 50 mg Tablet 50 mg PO BID@0900,2100 30 Days Qty: 60 0RF amoxicillin-pot clavulanate 875-125 mg tablet 1 tab PO BID Qty: 10 0RF levofloxacin 750 mg tablet 750 mg PO Q24H 7 Days Qty: 7 0RF prednisone 10 mg tablet See Taper PO DIRECTED Qty: 42 0RF Taper: predniSONE 60-10 60 mg Daily for 2 Days and 0 Hour 50 mg Daily for 2 Days and 0 Hour 40 mg Daily for 2 Days and 0 Hour 30 mg Daily for 2 Days and 0 Hour 20 mg Daily for 2 Days and 0 Hour 10 mg Daily for 2 Days and 0 Hour Rx Instructions: see taper instructions Continued albuterol sulfate 90 mcg/actuation HFA aerosol inhaler 2 puff INHALATION Q4H PRN (Reason: Shortness Of Breath) 30 Days Qty: 8.5 5RF Discontinued hydrochlorothiazide 25 mg tablet 25 mg PO DAILY Qty: 90 3RF amoxicillin 875 mg tablet 875 mg PO BID Qty: 20 0RF prednisone 20 mg tablet 20 mg PO .COMPLEX Qty: 20 0RF Rx Instructions: 4 tabs day 1, decrease by one half tablet daily until gone. Discharge Orders: Discharge Order (Routine); Ordered 04/30/24 Ordered By: Leobardo Mitchell Other Ambulatory Orders: DME: Nebulizer with Neb Kit (Order) Location: None Selected Ordered By: Leobardo Mitchell Pulmonary Function Screen with Bronchodilator (Routine) Timeframe: 1 Week Facility: [facility] - Location: Respiratory Therapy Ordered By: Leobardo Mitchell Sleep Study W Sleep Stage (Routine) Timeframe: 1 Week Facility: [facility] - Location: [facility] Ordered By: Leobardo Mitchell Referrals: Johnnie Theodore MD [Primary Care Provider] - 7-10 days Discharge Diet: Cardiac Discharge Activity: Resume usual activity and Increase activity as tolerated Patient Instructions: Opioid Safety Activity Restrictions/Additional Instructions: Continue nebulization with DuoNeb 3 times a day, Pulmicort twice daily. Once you are done with nebulization in 2 weeks you should start your nebulization with Breo Ellipta. Take Lasix 20 mg as needed for lower limb swelling. You should have a sleep study and a pulmonary function test as an outpatient. Coding Level of Care Code Acute Code for Chg Fwd Diagnoses Hypoxemia R09.02 COPD with acute exacerbation J44.1 Mild persistent asthma J45.30 Orthopnea R06.01 Essential hypertension I10 Hypertension type: essential hypertension Failure of outpatient treatment Z78.9
--- NOTE | 2024-04-30 13:54 | ECG_ITS ---
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 Measurements Intervals [place] Rate: 127 P: 28 KS: 118 QRS: -57 QRSD: 131 T: 7 QT: 360 QTc: 525 Interpretive Statements SINUS TACHYCARDIA RIGHT BUNDLE BRANCH BLOCK [120+ ms QRS DURATION, UPRIGHT V1, 40+ ms S IN I/aVL/V4/V5/V6] LEFT ANTERIOR FASCICULAR BLOCK [QRS AXIS <= -45, QR IN I, RS IN II] POSSIBLE SEPTAL MYOCARDIAL INFARCTION , PROBABLY OLD [30 ms Q WAVE IN V1/V2] LATERAL MYOCARDIAL INFARCTION , OF INDETERMINATE AGE [40+ ms Q WAVE AND/OR ST/T ABNORMALITY IN I/aVL/V5/V6] Compared to ECG 04/29/2024 17:38:40 Left anterior fascicular block now present Ventricular premature complex(es) no longer present Intraventricular conduction delay no longer present Myocardial infarct finding still present Electronically Signed On 04-30-2024 17:56:58 PROBLEM MANAGER by Patel Oleary M.D. [email or web address]
--- NOTE | 2024-04-30 14:48 | P.PN_ITS ---
Subjective 2 Subjective: No acute events overnight. Patient has remained hemodynamically stable and afebrile. Remains on room air. Continues to complain of difficulty in breathing on minimal exertion. Patient was to be discharged today but on doing home O2 evaluation she required 2 L of oxygen supplementation but her heart rate went up to 130s to 140s complaining of palpitations and difficulty in breathing. Because of symptomatic tachycardia discharge were discontinued. Vitals/I&O/Wt Last Vital Signs Temp 98.6 F 04/30/24 12:00 Pulse 95 04/30/24 13:31 Resp 18 04/30/24 13:31 BP 114/71 04/30/24 12:00 Pulse Ox 94 04/30/24 13:45 O2 Del Method Room Air 04/30/24 12:00 O2 Flow Rate 2 04/30/24 13:45 04/29/24 04/30/24 04/30/24 22:59 06:59 14:59 Intake Total 120 / 120 240 / 240 Output Total 450 / 450 Balance 120 / 120 -450 / -330 240 / 240 Weight last 48 hrs Weight 105.687 kg Weight 105.687 kg Weight 105.857 kg Weight 108.409 kg Physical Exam 2 Narrative: General: No acute distress, AO x3, anxious, morbidly obese HEENT: PERRLA, pupils bilaterally equal and reactive Chest: Bilateral bronchial breath sounds all lung knox with occasional rhonchi and crackles all over lung knox diffusely CVS: S1-S2 regular, no murmurs, no tachycardia, no gallops, no rubs Abdomen: Soft, nontender, no organomegaly, bowel sounds present Neuro: No focal deficits, no facial deformity, AO x3, power 5/5 in all limbs Data 04/30/24 04:49 04/30/24 04:49 A&P Assessment and plan (1) Hypoxemia: (2) COPD with acute exacerbation: (3) Mild persistent asthma: (4) Orthopnea: (5) Hypertension: Qualifiers: Hypertension type: essential hypertension Qualified Code(s): I10 - Essential (primary) hypertension (6) Failure of outpatient treatment: Plan Shortness of breath: Hypoxic respiratory failure: Failure to outpatient treatment. Most likely in setting of COPD exacerbation. Congestive heart failure ruled out with a normal echocardiogram. MRSA swab negative. D-dimer negative. Appreciate negative procalcitonin. Sputum culture not collected. COVID-19/flu/RSV swab negative. Oxygen supplementation keeping saturation over 90%. Continue with 40 mg IV every 8 hours. Plan to de-escalate in next 24 hours. Nebulization with Pulmicort twice daily,Given tachycardia on exertion for now we will switch to ipratropium and Xopenex every 6 hour. Empirically start patient on IV ceftriaxone and oral azithromycin to cover for community-acquired pneumonia. Echocardiogram shows a normal EF of 55 to 60%, grade 1 diastolic dysfunction with mild MR, mild aortic stenosis and mild TR. Strict input output charting, daily weights. Fluid restriction to less than 1500 cc. Hold off on any further diuresis for now. Hypokalemia: Most likely due to diuresis. Received 40 mg of IV potassium earlier in the morning. Replace with 120 mg more of potassium. Repeat BMP in afternoon. Hypertension: Goal blood pressure less than 140/90 mmHg. Used to be on lisinopril in the past but was discontinued because of concerns for angioedema. Blood pressure is elevated. Start on amlodipine 5 mg oral daily, metoprolol 50 mg twice daily. Patient tachycardic at baseline. Holding off on home dose of hydrochlorothiazide. Uptitrate as for goal blood pressures. Orthopnea: Most likely in setting of sleep apnea. Patient would benefit with sleep study as an outpatient. CODE STATUS: Discussed in detail with the patient. Daughter will be the DPOA. Full code. Cardiac diet Protonix OPD prophylaxis Heparin 5000 Q12 hourly for DVT prophylaxis. PDMP PDMP Reviewed: Not Reviewed Attestations 2 Medical Necessity Statement*: Requires further hospitalization for management of hypoxic respiratory failure in setting of COPD exacerbation, uncontrolled hypertension Diagnoses Hypoxemia R09.02 COPD with acute exacerbation J44.1 Mild persistent asthma J45.30 Orthopnea R06.01 Essential hypertension I10 Hypertension type: essential hypertension Failure of outpatient treatment Z78.9
[2024-04-30 16:22] LABS: Anion Gap 17.7 (5-19); Blood Urea Nitrogen 22 mg/dL (8-23); Calcium 9.6 mg/dL (8.5-10.5); Carbon Dioxide 24 mmol/L (22-29); Chloride 104 mmol/L (98-107); Creatinine Clr Calc Pharmacy 81.2545; Glomerular Filtration Rate 71.3 mL/min (90-130); Glucose 133 mg/dL (65-115); Osmolality Calculated 297 mOsm/kg (285-295); Potassium 4.7 mmol/L (3.5-5.1); Sodium 141 mmol/L (136-145)
[2024-04-30] MEDS: pantoprazole 40 mg SDV IVP (16:34)
[2024-04-30] MEDS: cefTRIAXone 1,000 mg SDV 1000 MG IVP (16:35)
[2024-04-30] MEDS: ipratropium 0.5 mg/2.5 mL Neb INHALATION (20:24)
[2024-04-30] MEDS: levalbuterol 0.63 mg/3 mL Neb INHALATION (20:24)
[2024-05-01] VITALS (8 sets, daily range): BP systolic 133–165; BP diastolic 73–88; PULSE 69–86; RESP 15–18; TEMP 36.5–36.8; O2SAT 94–97
[2024-05-01] MEDS: ipratropium 0.5 mg/2.5 mL Neb INHALATION ×3 (01:42→13:27)
[2024-05-01] MEDS: levalbuterol 0.63 mg/3 mL Neb INHALATION ×3 (01:42→13:27)
[2024-05-01] MEDS: methylPREDNISolone sod succ 40 mg/mL INJ IVP ×2 (04:29→13:01)
[2024-05-01] MEDS: heparin 5,000 unit/mL INJ 1 mL 5000 UNIT SUBCUT (04:30)
[2024-05-01 04:51] LABS: Basophils % 0.1 %; Hematocrit 43.2 % (36-47); Lymphocytes % 5.6 %; Mean Corpuscular HGB Conc 30.1 g/dL (30-55); Mean Corpuscular Hemoglobin 29.4 pg (27-33); Mean Corpuscular Volume 97.7 fl (85-98); Mean Platelet Volume 11.8 fL (7.4-10.4); Monocytes # 0.5 10^3/uL (0.2-0.9); Monocytes % 2.6 %; Neutrophils # 16.31 10^3/uL (1.8-7.7); Neutrophils % 91.3 %; Nucleated Red Blood Cells % 0 %; Platelet Count 228 10^3/cmm (157-399); Red Blood Count 4.42 10^6/uL (3.85-5.65); Red Cell Distribution Width 15.9 % (12.1-15.1); White Blood Count 17.87 10^3/uL (3.29-11.43)
[2024-05-01 05:09] LABS: Alanine Aminotransferase 9 U/L (0-33); Albumin Level 3.7 g/dL (3.5-5.2); Alkaline Phosphatase 133 U/L (35-105); Anion Gap 15.2 (5-19); Aspartate Amino Transferase 11 U/L (0-32); Blood Urea Nitrogen 26 mg/dL (8-23); Calcium 9.5 mg/dL (8.5-10.5); Carbon Dioxide 24 mmol/L (22-29); Chloride 108 mmol/L (98-107); Creatinine Clr Calc Pharmacy 81.9485; Globulin 2.9 g/dL (1.3-4.6); Glomerular Filtration Rate 83.2 mL/min (90-130); Glucose 142 mg/dL (65-115); Magnesium 2.3 mg/dL (1.7-2.3); Osmolality Calculated 301 mOsm/kg (285-295); Phosphorus 3.3 mg/dL (2.5-4.5); Potassium 5.2 mmol/L (3.5-5.1); Sodium 142 mmol/L (136-145); Total Bilirubin 0.3 mg/dL (0.15-1.2); Total Protein 6.6 g/dL (6.6-8.7)
[2024-05-01] MEDS: budesonide 0.5 mg/2 mL Neb INHALATION (08:10)
[2024-05-01] MEDS: azithromycin 250 mg Tablet 500 MG PO (09:05)
[2024-05-01] MEDS: metoprolol tartrate 50 mg Tablet PO (09:05)
[2024-05-01] MEDS: amlodipine 5 mg Tablet PO (09:05)
[2024-05-01] MEDS: docusate sodium 100 mg Capsule PO (09:06)
--- NOTE | 2024-05-01 12:47 | P.DS_ITS ---
Discharge Providers Date of Admission: 04/29/24 15:47 Date of Discharge: May 01, 2024 Attending Provider at Admission: Leobardo Mitchell MD Attending Provider at Discharge: Leobardo Mitchell MD Primary Care Provider: Johnnie Theodore MD Diagnoses at Discharge Discharge Diagnosis (1) Hypoxemia: Status: Acute (2) COPD with acute exacerbation: Status: Acute (3) Mild persistent asthma: Status: Acute (4) Orthopnea: Status: Acute (5) Hypertension: Status: Acute Qualifiers: Hypertension type: essential hypertension Qualified Code(s): I10 - Essential (primary) hypertension (6) Failure of outpatient treatment: Status: Acute Reason for Visit Reason for Visit: SOB Hospital Course Hospital Course Rasheeda Child is a 68 year old female with past medical of asthma, hypertension, COVID-19 in 2020 who presents to the ER today because of difficulty in breathing which has been getting worse over last few months even though she has tried multiple courses of steroids and antibiotics. Difficulty in breathing gets worse on minimal exertion and laying down. She states she has not been able to lie down for many years as whenever she would want to lie down she would feel as if she was drowning. Denies any nausea, vomiting, headache, sick contacts, fevers. At home today her saturations down to low 70s and she ap peared to the ER. Presentation to the ER she was saturating 90% at rest but dropping down to low 70s on minimal exertion hence hospitalist service was requested. Patient was admitted to the hospital for further evaluation and management of hypoxia with shortness of breath in setting of COPD exacerbation with concerns for failure to outpatient treatment. During hospitalization she remained afebr ile and on room air. She continued to have higher oxygen requirements and tachycardia on minimal exertion. Echocardiogram was done which showed a normal EF with mild aortic stenosis. During hospitalization she was found to have elevated blood pressures with tachycardia for which amlodipine 10 mg oral daily along with metoprolol 50 mg twice daily has been added to her medication list. She has been discharged in hemodynamically stable condition on prednisone taper, nebulization treatment with DuoNeb 3 times a day, Pulmicort twice daily. She will be on antihypertensives as above. She is to check her blood pressures daily and maintain a diary and follow-up with a primary care provider in next 2 weeks for further adjustment of antihypertensive. Physical Exam Narrative: General: No acute distress, AO x3, anxious, morbidly obese HEENT: PERRLA, pupils bilaterally equal and reactive Chest: Bilateral bronchial breath sounds all lung knox with occasional rhonchi and crackles all over lung knox diffusely CVS: S1-S2 regular, no murmurs, no tachycardia, no gallops, no rubs Abdomen: Soft, nontender, no organomegaly, bowel sounds present Neuro: No focal deficits, no facial deformity, AO x3, power 5/5 in all limbs Discharge Data Studies Completed and Pending Completed Studies During Hospitalization Category Date Time Status XR chest 1V portable [id number] Stat Exams 04/29/24 11:29 Completed CV. echo complete* [id number] Routine Ultrasound 04/29/24 14:52 Completed Pending at discharge Category Date Time Status Complete Blood Count w/Auto AM LABS Lab 05/02/24 04:00 Ordered Comprehensive Metabolic Panel AM LABS Lab 05/02/24 04:00 Ordered Magnesium AM LABS Lab 05/02/24 04:00 Ordered Phosphorus AM LABS Lab 05/02/24 04:00 Ordered Sputum Culture and Gram Stain Stat Lab 04/30/24 20:09 Received Urinalysis Routine Lab 04/29/24 17:12 Ordered Radiology Impressions Chest X-Ray 04/29/24 11:29 IMPRESSION: Stable chest without acute abnormality. Echocardiogram: CONCLUSIONS LV systolic function is normal with EF of 55 to 60%. Grade 1 diastolic dysfunction. Mild mitral regurgitation. Mild aortic stenosis with mean gradient of 11 mmHg. Mild tricuspid regurgitation. No comparison studies are available. Patel Oleary MD (Electronically Signed) Final Date: 30 April 2024 12:02 Laboratory Results WBC 17.87 10^3/uL (3.29-11.43) H 05/01/24 04:20 RBC 4.42 10^6/uL (3.85-5.65) 05/01/24 04:20 Hgb 13.00 g/dL (11.27-16.99) 05/01/24 04:20 Hct 43.2 % (36-47) 05/01/24 04:20 MCV 97.7 fl (85-98) 05/01/24 04:20 MCH 29.4 pg (27-33) 05/01/24 04:20 MCHC 30.1 g/dL (30-55) 05/01/24 04:20 RDW 15.9 % (12.1-15.1) H 05/01/24 04:20 Plt Count 228 10^3/cmm (157-399) 05/01/24 04:20 MPV 11.8 fL (7.4-10.4) H 05/01/24 04:20 Neut % (Auto) 91.3 % 05/01/24 04:20 Lymph % (Auto) 5.6 % 05/01/24 04:20 [place] % (Auto) 2.6 % 05/01/24 04:20 Eos % (Auto) 0.0 % 05/01/24 04:20 Baso % (Auto) 0.1 % 05/01/24 04:20 Neut # (Auto) 16.31 10^3/uL (1.8-7.7) H 05/01/24 04:20 Lymph # (Auto) 1.0 10^3/uL (0.8-4.8) 05/01/24 04:20 [place] # (Auto) 0.5 10^3/uL (0.2-0.9) 05/01/24 04:20 Eos # (Auto) 0.0 10^3/uL (0.0-0.8) 05/01/24 04:20 Baso # (Auto) 0.0 10^3/uL (0.0-0.1) 05/01/24 04:20 Nucleated RBC % (auto) 0 % 05/01/24 04:20 Nucleated RBCs # 0.0 /100WBC 05/01/24 04:20 D-Dimer 0.56 ug/mLFEU (0-0.59) 04/29/24 11:48 Specimen Type Arterial 04/29/24 12:50 Sample Site Radial, left 04/29/24 12:50 ABG pH 7.41 (7.35-7.45) 04/29/24 12:50 ABG pCO2 47.7 mmHg (35-45) H 04/29/24 12:50 ABG pO2 85.4 mmHg (80.0-100.0) 04/29/24 12:50 ABG HCO3 30.0 mmol/L (22-26) H 04/29/24 12:50 ABG O2 Saturation 97.2 04/29/24 12:50 ABG Base Excess 4.4 mmol/L (-2.0-2.0) H 04/29/24 12:50 Silvio Test Pos 04/29/24 12:50 A-a O2 Gradient 0.4 mmHg (5-10) L 04/29/24 12:50 Hematocrit 42.7 % (37-47) 04/29/24 12:50 Hgb O2 Saturation 95.3 % (95-100) 04/29/24 12:50 Carboxyhemoglobin 1.0 %THgb (0.4-20.1) 04/29/24 12:50 Methemoglobin 0.9 % (0.4-1.5) 04/29/24 12:50 Total Hemoglobin 13.9 g/dL (12-16) 04/29/24 12:50 Sodium 144.0 mmol/L (131-143) H 04/29/24 12:50 Potassium 3.1 mmol/L (3.5-5.0) L 04/29/24 12:50 Glucose 84.0 mg/dL (70-115) 04/29/24 12:50 Ionized Calcium 1.2 mmol/L (1.1-1.4) 04/29/24 12:50 O2 Delivery Device Nc 04/29/24 12:50 O2 Liters/Min 2.5 % 04/29/24 12:50 Healthcare Manager ID [place] 04/29/24 12:50 Sodium 142 mmol/L (136-145) 05/01/24 04:20 Potassium 5.2 mmol/L (3.5-5.1) H 05/01/24 04:20 Chloride 108 mmol/L (98-107) H 05/01/24 04:20 Carbon Dioxide 24 mmol/L (22-29) 05/01/24 04:20 Anion Gap 15.2 (5-19) 05/01/24 04:20 BUN 26 mg/dL (8-23) H 05/01/24 04:20 Creatinine 0.7 mg/dL (0.5-0.9) 05/01/24 04:20 GFR Calculation 83.2 mL/min (90-130) L 05/01/24 04:20 Glucose 142 mg/dL (65-115) H 05/01/24 04:20 Estimat Average Glucose 103 04/29/24 11:48 Hemoglobin A1c 5.2 % (4.0-6.0) 04/29/24 11:48 Calculated Osmolality 301 mOsm/kg (285-295) H 05/01/24 04:20 Lactic Acid 1.7 mmol/L (0.5-2.2) 04/29/24 11:48 Lactic Acid 1.8 mmol/L (0.5-2.2) 04/29/24 11:48 Calcium 9.5 mg/dL (8.5-10.5) 05/01/24 04:20 Phosphorus 3.3 mg/dL (2.5-4.5) D 05/01/24 04:20 Magnesium 2.3 mg/dL (1.7-2.3) 05/01/24 04:20 Iron 46 ug/dL (37-145) 04/29/24 11:48 TIBC 289 mcg/dl 04/29/24 11:48 % Saturation 15.9 % (20-50) L 04/29/24 11:48 Unsat Iron Binding 243 ug/dL (112-347) 04/29/24 11:48 Total Bilirubin 0.3 mg/dL (0.15-1.2) 05/01/24 04:20 AST 11 U/L (0-32) 05/01/24 04:20 ALT 9 U/L (0-33) 05/01/24 04:20 Alkaline Phosphatase 133 U/L (35-105) H 05/01/24 04:20 Troponin T Baseline 8 ng/L (0-10) 04/29/24 11:48 Troponin T 120 Minute 7.45 ng/L (0-10) 04/29/24 13:45 Delta Troponin T -0.55 ABS# (0-10) L 04/29/24 13:45 Troponin T Hi Sens 6Hr 6.43 ng/L (0-10) 04/29/24 17:35 Troponin T Hi Sens 6Hr Delta -1.57 ng/L (0-12) L 04/29/24 17:35 NT-Pro-B Natriuret Pep 42 pg/mL (0-125) 04/29/24 11:48 Total Protein 6.6 g/dL (6.6-8.7) 05/01/24 04:20 Albumin 3.7 g/dL (3.5-5.2) 05/01/24 04:20 Globulin 2.9 g/dL (1.3-4.6) 05/01/24 04:20 Triglycerides 43 mg/dL (0-150) 04/30/24 04:49 Triglycerides Cancelled 04/30/24 04:49 Cholesterol 180 mg/dL (0-200) 04/30/24 04:49 Cholesterol Cancelled 04/30/24 04:49 LDL Cholesterol, Calc 96 mg/dL (50-129) 04/30/24 04:49 LDL Cholesterol, Calc Cancelled 04/30/24 04:49 HDL Cholesterol 75 mg/dL (60-100) 04/30/24 04:49 HDL Cholesterol Cancelled 04/30/24 04:49 LDL/HDL Ratio 1.28 RATIO (0.00-3.22) 04/30/24 04:49 LDL/HDL Ratio Cancelled 04/30/24 04:49 Cholesterol/HDL Ratio 2.40 mg/dL (0.0-4.40) 04/30/24 04:49 Cholesterol/HDL Ratio Cancelled 04/30/24 04:49 Vitamin B12 1084 pg/mL (232-1245) 04/29/24 11:48 Folate 10.2 ng/mL (4.8-37.3) 04/30/24 04:49 Procalcitonin 0.04 ng/mL (0-0.5) 04/30/24 04:49 Procalcitonin Cancelled 04/30/24 04:49 TSH 1.66 uIU/mL (0.27-4.20) 04/29/24 11:48 Nasal MRSA (PCR) Not detected (Not Detecte) 04/29/24 19:03 Influenza A (PCR) Negative (Negative) 04/29/24 15:25 Influenza Type B (PCR) Negative (Negative) 04/29/24 15:25 RSV (PCR) Negative (Negative) 04/29/24 15:25 SARS-CoV-2 (PCR) Negative (Negative) 04/29/24 15:25 Vitals Last Vital Signs Temp 98.3 F 05/01/24 08:00 Pulse 86 05/01/24 08:00 Resp 16 05/01/24 08:00 BP 165/75 05/01/24 08:00 Pulse Ox 95 05/01/24 08:00 O2 Del Method Nasal Cannula 05/01/24 08:00 O2 Flow Rate 2 05/01/24 08:00 Discharge Plan Discharge Patient Disposition: Home Condition: Stable Prescriptions: New ipratropium-albuterol 0.5 mg-3 mg(2.5 mg base)/3 mL Solution For Nebulization 3 ml inhalation Q8H Qty: 180 0RF fluticasone furoate-vilanterol [Breo Ellipta] 100-25 mcg/dose blister with device 1 inh inhalation DAILY Qty: 60 0RF pantoprazole [Protonix] 40 mg tablet,delayed release (DR/EC) 40 mg PO QAM Qty: 14 0RF Rx Instructions: Twice daily for next 2 weeks followed by once daily budesonide 0.5 mg/2 mL Suspension For Nebulization 0.5 mg inhalation BID.RESPIRATORY Qty: 60 0RF amlodipine 5 mg Tablet 10 mg PO DAILY Qty: 60 0RF furosemide 20 mg Tablet 20 mg PO DAILY@0800 PRN (Reason: increased swelling in lower limbs) Qty: 14 0RF metoprolol tartrate 50 mg Tablet 50 mg PO BID@0900,2100 30 Days Qty: 60 0RF amoxicillin-pot clavulanate 875-125 mg tablet 1 tab PO BID Qty: 10 0RF levofloxacin 750 mg tablet 750 mg PO Q24H 7 Days Qty: 7 0RF prednisone 10 mg tablet See Taper PO DIRECTED Qty: 42 0RF Taper: predniSONE 60-10 60 mg Daily for 2 Days and 0 Hour 50 mg Daily for 2 Days and 0 Hour 40 mg Daily for 2 Days and 0 Hour 30 mg Daily for 2 Days and 0 Hour 20 mg Daily for 2 Days and 0 Hour 10 mg Daily for 2 Days and 0 Hour Rx Instructions: see taper instructions Continued albuterol sulfate 90 mcg/actuation HFA aerosol inhaler 2 puff INHALATION Q4H PRN (Reason: Shortness Of Breath) 30 Days Qty: 8.5 5RF Discontinued hydrochlorothiazide 25 mg tablet 25 mg PO DAILY Qty: 90 3RF amoxicillin 875 mg tablet 875 mg PO BID Qty: 20 0RF prednisone 20 mg tablet 20 mg PO .COMPLEX Qty: 20 0RF Rx Instructions: 4 tabs day 1, decrease by one half tablet daily until gone. Discharge Orders: Discharge Order (Routine); Ordered 05/01/24 Ordered By: Leobardo Mitchell Other Ambulatory Orders: DME: Nebulizer with Neb Kit (Order) Location: None Selected Ordered By: Leobardo Mitchell Pulmonary Function Screen with Bronchodilator (Routine) Timeframe: 1 Week Facility: [facility] - Location: Respiratory Therapy Ordered By: Leobardo Mitchell Sleep Study W Sleep Stage (Routine) Timeframe: 1 Week Facility: [facility] - Location: [facility] Ordered By: Leobardo Mitchell Referrals: Johnnie Theodore MD [Primary Care Provider] - 7-10 days (We have notified your physician's clinic of the need for a follow-up appointment to be scheduled. If you have not heard from them within the next 2 business days, please call them directly. ) Discharge Diet: Cardiac Discharge Activity: Resume usual activity and Increase activity as tolerated Patient Instructions: Opioid Safety Activity Restrictions/Additional Instructions: Continue nebulization with DuoNeb 3 times a day, Pulmicort twice daily. Once you are done with nebulization in 2 weeks you should start your nebulization with Breo Ellipta. Take Lasix 20 mg as needed for lower limb swelling. You should have a sleep study and a pulmonary function test as an outpatient. Antihypertensives have been changed. Take amlodipine 10 mg oral daily, metoprolol 50 mg twice daily. Check your blood pressure daily at home maintain a blood pressure diary. Follow-up with a primary care provider within next 1 week to 10 days for further adjustment of medications. Goal blood pressure less than 140/90 mmHg. Please check your body weight daily at home. If your body weight increases by 3 pounds take oral Lasix 20 mg as needed. Discharge Attestations Time Spent in Discharge Care*: greater than 30 min Specific Discharge Activities: educating patient, discussing with pcp/other providers, discussing with mental health case manager/social workers/dc planners, documenting/other paperwork and evaluating patient/reviewing data Status at Discharge: Cognitive status at discharge: cognitively intact , Behavioral status at discharge: cooperative , Functional status at discharge: independent ambulation , Overall status at discharge: patient is back to baseline Quality Metrics Clinical Quality Measures [ No reported AMI, CVA or VTE this stay] Coding Level of Care Code 72396 Total time (in minutes) for Discharge: 60 Diagnoses Hypoxemia R09.02 COPD with acute exacerbation J44.1 Mild persistent asthma J45.30 Orthopnea R06.01 Essential hypertension I10 Hypertension type: essential hypertension Failure of outpatient treatment Z78.9
--- NOTE | 2024-05-01 15:43 | PC.NURSE ---
pt inquired at d/c abt other options in regards to her breo inhaler, as her insurance does not completely cover the medication. pt requested rn speak with the drAram to see if there was an alternate similar medication, spoke with dr. leal, he had already contacted the pharmacist about this pts medication. they are trying to find a solution currently. educ pt on the status and she will follow up.
== END 2024-05-01 15:50 | disposition home or self-care (01) | DRG 190 ==
LOC: ER 12:53 → ER IP 15:48 → MEDSURG 15:52
PROVIDERS: Admitting Provider Student in an Organized Health Care Education/Training Program; Emergency Provider Emergency Medicine; PCP Family Medicine; Visit Provider Student in an Organized Health Care Education/Training Program
DX: J44.1 Chronic obstructive pulmonary disease with (acute) exacerbation (principal); J96.01 Acute respiratory failure with hypoxia; I10 Essential (primary) hypertension; I35.0 Nonrheumatic aortic (valve) stenosis; I08.1 Rheumatic disorders of both mitral and tricuspid valves; R00.0 Tachycardia, unspecified; G47.30 Sleep apnea, unspecified; E66.01 Morbid (severe) obesity due to excess calories; E87.6 Hypokalemia; Z86.16 Personal history of COVID-19; Z88.8 Allergy status to other drugs, medicaments and biological substances; Z87.891 Personal history of nicotine dependence; Z11.52 Encounter for screening for COVID-19; Z68.39 Body mass index [BMI] 39.0-39.9, adult
CPT/HCPCS: 36415; 36600; 71045; 80048; 80051; 80053; 80061; 82330; 82607; 82746; 82805; 83036; 83540; 83550; 83605; 83735; 83880; 84100; 84145; 84443; 84484; 85025; 85378; 87070; 87205; 87637; 93005; 93306; 94640; 94664; 94760; 96372; 96374; 99285; J0696; J1644; J1940; J2470; J2919; J3480; J7613; J7614; J7626; J7644; J9999; Q0144

== ENCOUNTER → 2024-05-11 16:09 | Outpatient (BNVA) | payer MEDICARE, SELFPAY | PROVIDERS: PCP Family Medicine; Visit Provider Family Medicine | DX: D72.829 Elevated white blood cell count, unspecified (principal); E87.6 Hypokalemia | CPT/HCPCS: 80048; 85025 ==

== ENCOUNTER → 2024-05-25 16:15 | Outpatient (BNVA) | payer MEDICARE, SELFPAY | PROVIDERS: PCP Family Medicine; Visit Provider Family Medicine | DX: I10 Essential (primary) hypertension (principal) | CPT/HCPCS: 80048; 85025 ==

== ENCOUNTER 2024-08-09 12:37 | Emergency (ER) | payer MEDICARE, SELFPAY ==
[2024-08-09] VITALS (8 sets, daily range): BP systolic 126–143; BP diastolic 74–78; PULSE 76–85; RESP 18–20; TEMP 36.8; O2SAT 86–95
--- NOTE | 2024-08-09 12:46 | ECG_ITS ---
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 Measurements Intervals [place] Rate: 83 P: 8 GA: 116 QRS: -32 QRSD: 134 T: 0 QT: 395 QTc: 465 Interpretive Statements SINUS RHYTHM WITH SHORT GA INTERVAL LEFT AXIS DEVIATION [QRS AXIS < -30] RIGHT BUNDLE BRANCH BLOCK [120+ ms QRS DURATION, UPRIGHT V1, 40+ ms S IN I/aVL/V4/V5/V6] Compared to ECG 04/30/2024 14:03:44 Short GA interval now present Left-axis deviation now present Sinus tachycardia no longer present Left anterior fascicular block no longer present Myocardial infarct finding no longer present Electronically Signed On 08-11-2024 06:17:58 CDT by Dawson Calhoun M.D. [email or web address] [id number]
--- NOTE | 2024-08-09 12:46 | XRR_ITS ---
PROCEDURE INFORMATION: Exam: XR Chest Exam date and time: 08/09/2024 1:00 PM Age: 68 years old Clinical indication: Pain; Chest pressure; Additional info: Cp TECHNIQUE: Imaging protocol: Radiologic exam of the chest. Views: 1 view. COMPARISON: CR XR chest 1V portable [id number] 04/29/2024 11:54 AM FINDINGS: Lungs: Areas of mild pulmonary scarring again noted. No acute pulmonary pathology. Pleural spaces: No pleural effusion. Heart/Mediastinum: Cardiomediastinal contours accentuated by technique but are unchanged. Bones/joints: Degenerative changes again seen in the spine. XR/XR chest 1V portable [id number] IMPRESSION: No acute pathology or significant interval change.
[2024-08-09 13:49] LABS: Basophils # 0.1 10^3/uL (0.0-0.1); Basophils % 0.3 %; Eosinophils # 0.1 10^3/uL (0.0-0.8); Eosinophils % 0.8 %; Hematocrit 43.5 % (36-47); Lymphocytes # 1.5 10^3/uL (0.8-4.8); Lymphocytes % 8.3 %; Mean Corpuscular HGB Conc 31.5 g/dL (30-55); Mean Corpuscular Hemoglobin 29.1 pg (27-33); Mean Corpuscular Volume 92.6 fl (85-98); Mean Platelet Volume 10.4 fL (7.4-10.4); Monocytes # 1.1 10^3/uL (0.2-0.9); Monocytes % 6.2 %; Neutrophils # 14.72 10^3/uL (1.8-7.7); Neutrophils % 83.9 %; Nucleated Red Blood Cells % 0 %; Platelet Count 256 10^3/cmm (157-399); Red Cell Distribution Width 14.7 % (12.1-15.1); White Blood Count 17.52 10^3/uL (3.29-11.43)
[2024-08-09 14:13] LABS: Troponin(5th) Baseline 9 ng/L (0-10)
[2024-08-09 14:21] LABS: Alanine Aminotransferase 7 U/L (0-33); Albumin Level 3.7 g/dL (3.5-5.2); Alkaline Phosphatase 151 U/L (35-105); Anion Gap 13.3 (5-19); Aspartate Amino Transferase 8 U/L (0-32); Blood Urea Nitrogen 16 mg/dL (8-23); Calcium 8.5 mg/dL (8.5-10.5); Carbon Dioxide 26 mmol/L (22-29); Chloride 106 mmol/L (98-107); Creatinine Clr Calc Pharmacy 77.7844; Globulin 1.8 g/dL (1.3-4.6); Glomerular Filtration Rate 83.2 mL/min (90-130); Glucose 103 mg/dL (65-115); Lipase 17 U/L (13-60); NT Pro B Type Natriuretic Pept 175 pg/mL (0-125); Osmolality Calculated 295 mOsm/kg (285-295); Potassium 3.3 mmol/L (3.5-5.1); Sodium 142 mmol/L (136-145); Total Bilirubin 0.4 mg/dL (0.15-1.2); Total Protein 5.5 g/dL (6.6-8.7)
--- NOTE | 2024-08-09 16:46 | W.ED.SOB ---
Documented by User: Sebastien Young, 08/10/24 05:44 HPI - SOB/Dyspnea General: Chief Complaint: Shortness of Breath/Dyspnea Stated Complaint: chest tightness, sob, on 2LPM Time Seen by Provider: 08/09/24 14:06 History of Present Illness: HPI Narrative: 68-year-old female presents emergency room complaining of shortness of breath. Earlier this year she was discharged home with oxygen she wore 2 L/min for couple months and then titrated herself off of it she is noticing increasing shortness of breath recently off her oxygen particularly with activity. She did have little episode of chest pain earlier today. She denies any vomiting or diarrhea. Associated symptoms: Reports chest congestion and chest pain; Deny abdominal pain or fever(s) Related Data Previous Rx's ?Medication ?Instructions ?Recorded albuterol sulfate 90 mcg/actuation 2 puff inhalation Q4H PRN 05/11/24 aerosol inhaler Shortness Of Breath 30 days #8.5 grams budesonide 0.5 mg/2 mL suspension 0.5 mg (2 mL) inhalation 05/11/24 for nebulization BID.RESPIRATORY #60 mL ipratropium 0.5 mg-albuterol 3 mg 3 ml inhalation Q8H #180 mL 05/11/24 (2.5 mg base)/3 mL nebulization soln prednisone 10 mg tablet See Taper PO DIRECTED #60 tabs 05/11/24 amlodipine 5 mg tablet 5 mg PO DAILY #60 tabs 05/25/24 furosemide 40 mg tablet 40 mg PO DAILY #90 tabs 06/30/24 metoprolol tartrate 25 mg tablet 25 mg PO BID #180 tabs 06/30/24 pantoprazole 20 mg tablet,delayed 20 mg PO DAILY #30 tabs 08/08/24 release doxycycline hyclate 100 mg capsule 100 mg PO BID 7 days #14 caps 08/09/24 prednisone 20 mg tablet 60 mg (3 x 20 mg) PO DAILY #20 tabs 08/09/24 Allergies Allergy/AdvReac Type Severity Reaction Status Date / Time MARLEE Inhibitors AdvReac Intermediate Angioedema Verified 06/30/24 14:03 Review of Systems Const: Denies: fever(s) or chills Card: Reports: chest pain Resp: Reports: dyspnea and chest congestion GI: Denies: abdominal pain : Denies: dysuria, urinary frequency or urinary urgency Musc: Denies: neck pain or back pain Skin/Breast: Denies: rash PFSH ED PFSH: Medical History Allergies Mild persistent asthma Venous insufficiency of both lower extremities Bilateral renal stones History of abdominal hernia Hypertension Surgical History H/O umbilical hernia repair x2 History of lithotripsy History of tonsillectomy and adenoidectomy History of tubal ligation Family History Mother Cancer THYROID AND LUNG CANCER Father , IN HIS 60'S Sepsis Social History Smoking and tobacco/nicotine status: current every day tobacco/nicotine user Alcohol intake: never Substance/Drug Use: never Adopted: No Caregiver/support person: No Lives independently: No Household members: family Marital status: Current occupational status: employed Do you think of yourself as: Straight/Heterosexual Current gender identity: Female Physical Exam Const: GENERAL APPEARANCE: cooperative ORIENTATION/CONSCIOUSNESS: Yes awake, Yes oriented to person, Yes oriented to place and Yes oriented to time HENMT: COMMON NORMALS: normocephalic, atraumatic and hearing grossly normal bilaterally HEAD & SCALP: normocephalic and atraumatic Resp: COMMON NORMALS: normal respiratory effort, No retractions, No use of accessory muscles and clear to auscultation bilaterally AUSCULTATION: clear to auscultation bilaterally Cardio: COMMON NORMALS: regular rate, regular rhythm and No murmurs present (Cardio) RATE: regular rate RHYTHM: regular rhythm GI: COMMON NORMALS: Soft to palpation and No hepatosplenomegaly present AUSCULTATION: Yes normoactive bowel sounds PALPATION: Yes Soft to palpation, No Tenderness to palpation present (GI), No Guarding due to palpation present (GI) and Yes No hepatosplenomegaly present Extremity: COMMON NORMALS: normal to inspection, capillary refill normal, no clubbing, cyanosis or edema, no calf tenderness and no pedal edema Neuro: SENSORIUM/ORIENTATION: Yes oriented to person, Yes oriented to place and Yes oriented to time Skin: COMMON NORMALS: no rashes or lesions noted GENERAL SKIN EXAM: no rashes or lesions noted Course Vital Signs: Vital signs: Vital Signs Temperature 98.2 F 08/09/24 12:47 Pulse Rate 80 08/09/24 18:50 Respiratory Rate 18 08/09/24 18:10 Blood Pressure 135/78 08/09/24 18:50 Pulse Oximetry 94 08/09/24 18:50 Oxygen Delivery Me thod Room Air 08/09/24 18:10 Oxygen Flow Rate 3 08/09/24 17:21 MDM - SOB/Dyspnea Medical Decision Making Patient given steroids and nebulizers we did a home O2 evaluation requires 3 L by nasal cannula. Anticipate discharge home on steroid taper doxycycline and continuous oxygen as opposed to patient driven as needed. Discussed with oncoming physician, Dr. Payne. Care signed out to Dr. Payne at change of shift. See final notes for diagnosis and disposition. Patient care transitioned me at shift change. Chest x-ray is negative. Mild leukocytosis. Breathing is improved somewhat. Patient is discharged. Lab Data 08/09/24 13:43 08/09/24 13:43 Labs/Radiology: Radiology Impressions Chest X-Ray 08/09/24 12:46 IMPRESSION: No acute pathology or significant interval change. Laboratory Results WBC 17.52 10^3/uL (3.29-11.43) H 08/09/24 13:43 RBC 4.70 10^6/uL (3.85-5.65) 08/09/24 13:43 Hgb 13.70 g/dL (11.27-16.99) 08/09/24 13:43 Hct 43.5 % (36-47) 08/09/24 13:43 MCV 92.6 fl (85-98) 08/09/24 13:43 MCH 29.1 pg (27-33) 08/09/24 13:43 MCHC 31.5 g/dL (30-55) 08/09/24 13:43 RDW 14.7 % (12.1-15.1) 08/09/24 13:43 Plt Count 256 10^3/cmm (157-399) 08/09/24 13:43 MPV 10.4 fL (7.4-10.4) 08/09/24 13:43 Neut % (Auto) 83.9 % 08/09/24 13:43 Lymph % (Auto) 8.3 % 08/09/24 13:43 Garfield % (Auto) 6.2 % 08/09/24 13:43 Eos % (Auto) 0.8 % 08/09/24 13:43 Baso % (Auto) 0.3 % 08/09/24 13:43 Neut # (Auto) 14.72 10^3/uL (1.8-7.7) H 08/09/24 13:43 Lymph # (Auto) 1.5 10^3/uL (0.8-4.8) 08/09/24 13:43 Garfield # (Auto) 1.1 10^3/uL (0.2-0.9) H 08/09/24 13:43 Eos # (Auto) 0.1 10^3/uL (0.0-0.8) 08/09/24 13:43 Baso # (Auto) 0.1 10^3/uL (0.0-0.1) 08/09/24 13:43 Nucleated RBC % (auto) 0 % 08/09/24 13:43 Nucleated RBCs # 0.0 /100WBC 08/09/24 13:43 PT 13.90 SECONDS (12.1-14.9) 08/09/24 13:43 INR 1.00 (0.8-1.2) 08/09/24 13:43 Sodium 142 mmol/L (136-145) 08/09/24 13:43 Potassium 3.3 mmol/L (3.5-5.1) L 08/09/24 13:43 Chloride 106 mmol/L (98-107) 08/09/24 13:43 Carbon Dioxide 26 mmol/L (22-29) 08/09/24 13:43 Anion Gap 13.3 (5-19) 08/09/24 13:43 BUN 16 mg/dL (8-23) 08/09/24 13:43 Creatinine 0.7 mg/dL (0.5-0.9) 08/09/24 13:43 GFR Calculation 83.2 mL/min (90-130) L 08/09/24 13:43 Glucose 103 mg/dL (65-115) 08/09/24 13:43 Calculated Osmolality 295 mOsm/kg (285-295) 08/09/24 13:43 Calcium 8.5 mg/dL (8.5-10.5) 08/09/24 13:43 Total Bilirubin 0.4 mg/dL (0.15-1.2) 08/09/24 13:43 AST 8 U/L (0-32) 08/09/24 13:43 ALT 7 U/L (0-33) 08/09/24 13:43 Alkaline Phosphatase 151 U/L (35-105) H 08/09/24 13:43 Troponin T Baseline 9 ng/L (0-10) 08/09/24 13:43 Troponin T 120 Minute 8.27 ng/L (0-10) 08/09/24 16:28 Delta Troponin T -0.73 ABS# (0-10) L 08/09/24 16:28 NT-Pro-B Natriuret Pep 175 pg/mL (0-125) H 08/09/24 13:43 Total Protein 5.5 g/dL (6.6-8.7) L 08/09/24 13:43 Albumin 3.7 g/dL (3.5-5.2) 08/09/24 13:43 Globulin 1.8 g/dL (1.3-4.6) 08/09/24 13:43 Lipase 17 U/L (13-60) 08/09/24 13:43 Discharge Plan Discharge Patient Disposition: Home Clinical Impression: Acute exacerbation of chronic obstructive airways disease Condition: Stable Prescriptions: New doxycycline hyclate 100 mg capsule 100 mg PO BID 7 Days Qty: 14 0RF prednisone 20 mg tablet 60 mg PO DAILY Qty: 20 0RF Rx Instructions: 3 tabs (60 mg) x 3 days. 2 tabs (40 mg) x 3 days. 1 tab (20 mg) x 3 days. 1/2 tab (10 mg) x 4 days No Action prednisone 10 mg tablet See Taper PO DIRECTED Qty: 60 0RF Taper: predniSONE 60-10 60 mg Daily for 2 Days and 0 Hour 50 mg Daily for 2 Days and 0 Hour 40 mg Daily for 2 Days and 0 Hour 30 mg Daily for 2 Days and 0 Hour 20 mg Daily for 2 Days and 0 Hour 10 mg Daily for 2 Days and 0 Hour Rx Instructions: see taper instructions budesonide 0.5 mg/2 mL suspension for nebulization 0.5 mg inhalation BID.RESPIRATORY Qty: 60 4RF ipratropium-albuterol 0.5 mg-3 mg(2.5 mg base)/3 mL solution for nebulization 3 ml inhalation Q8H Qty: 180 2RF albuterol sulfate 90 mcg/actuation HFA aerosol inhaler 2 puff INHALATION Q4H PRN (Reason: Shortness Of Breath) 30 Days Qty: 8.5 5RF amlodipine 5 mg tablet 5 mg PO DAILY Qty: 60 3RF furosemide 40 mg tablet 40 mg PO DAILY Qty: 90 1RF metoprolol tartrate 25 mg tablet 25 mg PO BID Qty: 180 1RF pantoprazole 20 mg tablet,delayed release (DR/EC) 20 mg PO DAILY Qty: 30 2RF Discharge Orders: Discharge ED (Routine); Ordered 08/09/24 Ordered By: Meg Payne Referrals: Johnnie Theodore MD [Primary Care Provider, [facility]] Discharge Diet: Usual diet Discharge Activity: Increase activity as tolerated Patient Instructions: COPD (Chronic Obstructive Pulmonary Disease) (ED), Opioid Safety, Pain Management Activity Restrictions/Additional Instructions: Thank you for choosing [facility] for your healthcare needs today. You have been screened and evaluated and felt safe for discharge. Health conditions do change or evolve sometimes and as such it is important that you follow up with your Primary Doctor to be re checked, 3-5 days is a general good time frame for follow up. You are always welcome to return to the ED for re assessment if your symptoms are worsening or you have new concerns Print Language: Central African Coding Level of Care Code ED Network Infrastructure Architect for Chg Fwd Documented by User: Meg Payne MD 08/09/24 18:33 HPI - SOB/Dyspnea General: Chief Complaint: Shortness of Breath/Dyspnea Stated Complaint: chest tightness, sob, on 2LPM Time Seen by Provider: 08/09/24 14:06 Related Data Previous Rx's ?Medication ?Instructions ?Recorded albuterol sulfate 90 mcg/actuation 2 puff inhalation Q4H PRN 05/11/24 aerosol inhaler Shortness Of Breath 30 days #8.5 grams budesonide 0.5 mg/2 mL suspension 0.5 mg (2 mL) inhalation 05/11/24 for nebulization BID.RESPIRATORY #60 mL ipratropium 0.5 mg-albuterol 3 mg 3 ml inhalation Q8H #180 mL 05/11/24 (2.5 mg base)/3 mL nebulization soln prednisone 10 mg tablet See Taper PO DIRECTED #60 tabs 05/11/24 amlodipine 5 mg tablet 5 mg PO DAILY #60 tabs 05/25/24 furosemide 40 mg tablet 40 mg PO DAILY #90 tabs 06/30/24 metoprolol tartrate 25 mg tablet 25 mg PO BID #180 tabs 06/30/24 pantoprazole 20 mg tablet,delayed 20 mg PO DAILY #30 tabs 08/08/24 release doxycycline hyclate 100 mg capsule 100 mg PO BID 7 days #14 caps 08/09/24 prednisone 20 mg tablet 60 mg (3 x 20 mg) PO DAILY #20 tabs 08/09/24 Allergies Allergy/AdvReac Type Severity Reaction Status Date / Time MARLEE Inhibitors AdvReac Intermediate Angioedema Verified 06/30/24 14:03 PFSH ED PFSH: Medical History Allergies Mild persistent asthma Venous insufficiency of both lower extremities Bilateral renal stones History of abdominal hernia Hypertension Surgical History H/O umbilical hernia repair x2 History of lithotripsy History of tonsillectomy and adenoidectomy History of tubal ligation Family History Mother Cancer THYROID AND LUNG CANCER Father , IN HIS 60'S Sepsis Social History Smoking and tobacco/nicotine status: current every day tobacco/nicotine user Alcohol intake: never Substance/Drug Use: never Adopted: No Caregiver/support person: No Lives independently: No Household members: family Marital status: Current occupational status: employed Do you think of yourself as: Straight/Heterosexual Current gender identity: Female Course Vital Signs: Vital signs: Vital Signs Temperature 98.2 F 08/09/24 12:47 Pulse Rate 80 08/09/24 18:50 Respiratory Rate 18 08/09/24 18:10 Blood Pressure 135/78 08/09/24 18:50 Pulse Oximetry 94 08/09/24 18:50 Oxygen Delivery Me thod Room Air 08/09/24 18:10 Oxygen Flow Rate 3 08/09/24 17:21 MDM - SOB/Dyspnea Medical Decision Making Patient care transitioned me at shift change. Chest x-ray is negative. Mild leukocytosis. Breathing is improved somewhat. Patient is discharged. Lab Data 08/09/24 13:43 08/09/24 13:43 Labs/Radiology: Radiology Impressions Chest X-Ray 08/09/24 12:46 IMPRESSION: No acute pathology or significant interval change. Laboratory Results WBC 17.52 10^3/uL (3.29-11.43) H 08/09/24 13:43 RBC 4.70 10^6/uL (3.85-5.65) 08/09/24 13:43 Hgb 13.70 g/dL (11.27-16.99) 08/09/24 13:43 Hct 43.5 % (36-47) 08/09/24 13:43 MCV 92.6 fl (85-98) 08/09/24 13:43 MCH 29.1 pg (27-33) 08/09/24 13:43 MCHC 31.5 g/dL (30-55) 08/09/24 13:43 RDW 14.7 % (12.1-15.1) 08/09/24 13:43 Plt Count 256 10^3/cmm (157-399) 08/09/24 13:43 MPV 10.4 fL (7.4-10.4) 08/09/24 13:43 Neut % (Auto) 83.9 % 08/09/24 13:43 Lymph % (Auto) 8.3 % 08/09/24 13:43 Garfield % (Auto) 6.2 % 08/09/24 13:43 Eos % (Auto) 0.8 % 08/09/24 13:43 Baso % (Auto) 0.3 % 08/09/24 13:43 Neut # (Auto) 14.72 10^3/uL (1.8-7.7) H 08/09/24 13:43 Lymph # (Auto) 1.5 10^3/uL (0.8-4.8) 08/09/24 13:43 Garfield # (Auto) 1.1 10^3/uL (0.2-0.9) H 08/09/24 13:43 Eos # (Auto) 0.1 10^3/uL (0.0-0.8) 08/09/24 13:43 Baso # (Auto) 0.1 10^3/uL (0.0-0.1) 08/09/24 13:43 Nucleated RBC % (auto) 0 % 08/09/24 13:43 Nucleated RBCs # 0.0 /100WBC 08/09/24 13:43 PT 13.90 SECONDS (12.1-14.9) 08/09/24 13:43 INR 1.00 (0.8-1.2) 08/09/24 13:43 Sodium 142 mmol/L (136-145) 08/09/24 13:43 Potassium 3.3 mmol/L (3.5-5.1) L 08/09/24 13:43 Chloride 106 mmol/L (98-107) 08/09/24 13:43 Carbon Dioxide 26 mmol/L (22-29) 08/09/24 13:43 Anion Gap 13.3 (5-19) 08/09/24 13:43 BUN 16 mg/dL (8-23) 08/09/24 13:43 Creatinine 0.7 mg/dL (0.5-0.9) 08/09/24 13:43 GFR Calculation 83.2 mL/min (90-130) L 08/09/24 13:43 Glucose 103 mg/dL (65-115) 08/09/24 13:43 Calculated Osmolality 295 mOsm/kg (285-295) 08/09/24 13:43 Calcium 8.5 mg/dL (8.5-10.5) 08/09/24 13:43 Total Bilirubin 0.4 mg/dL (0.15-1.2) 08/09/24 13:43 AST 8 U/L (0-32) 08/09/24 13:43 ALT 7 U/L (0-33) 08/09/24 13:43 Alkaline Phosphatase 151 U/L (35-105) H 08/09/24 13:43 Troponin T Baseline 9 ng/L (0-10) 08/09/24 13:43 Troponin T 120 Minute 8.27 ng/L (0-10) 08/09/24 16:28 Delta Troponin T -0.73 ABS# (0-10) L 08/09/24 16:28 NT-Pro-B Natriuret Pep 175 pg/mL (0-125) H 08/09/24 13:43 Total Protein 5.5 g/dL (6.6-8.7) L 08/09/24 13:43 Albumin 3.7 g/dL (3.5-5.2) 08/09/24 13:43 Globulin 1.8 g/dL (1.3-4.6) 08/09/24 13:43 Lipase 17 U/L (13-60) 08/09/24 13:43 All radiology interpretation(s) finalized by discharge Discharge Plan Discharge Patient Disposition: Home Clinical Impression: Acute exacerbation of chronic obstructive airways disease Condition: Stable Prescriptions: New doxycycline hyclate 100 mg capsule 100 mg PO BID 7 Days Qty: 14 0RF prednisone 20 mg tablet 60 mg PO DAILY Qty: 20 0RF Rx Instructions: 3 tabs (60 mg) x 3 days. 2 tabs (40 mg) x 3 days. 1 tab (20 mg) x 3 days. 1/2 tab (10 mg) x 4 days No Action prednisone 10 mg tablet See Taper PO DIRECTED Qty: 60 0RF Taper: predniSONE 60-10 60 mg Daily for 2 Days and 0 Hour 50 mg Daily for 2 Days and 0 Hour 40 mg Daily for 2 Days and 0 Hour 30 mg Daily for 2 Days and 0 Hour 20 mg Daily for 2 Days and 0 Hour 10 mg Daily for 2 Days and 0 Hour Rx Instructions: see taper instructions budesonide 0.5 mg/2 mL suspension for nebulization 0.5 mg inhalation BID.RESPIRATORY Qty: 60 4RF ipratropium-albuterol 0.5 mg-3 mg(2.5 mg base)/3 mL solution for nebulization 3 ml inhalation Q8H Qty: 180 2RF albuterol sulfate 90 mcg/actuation HFA aerosol inhaler 2 puff INHALATION Q4H PRN (Reason: Shortness Of Breath) 30 Days Qty: 8.5 5RF amlodipine 5 mg tablet 5 mg PO DAILY Qty: 60 3RF furosemide 40 mg tablet 40 mg PO DAILY Qty: 90 1RF metoprolol tartrate 25 mg tablet 25 mg PO BID Qty: 180 1RF pantoprazole 20 mg tablet,delayed release (DR/EC) 20 mg PO DAILY Qty: 30 2RF Discharge Orders: Discharge ED (Routine); Ordered 08/09/24 Ordered By: Meg Payne Referrals: Johnnie Theodore MD [Primary Care Provider, Family Practice] Discharge Diet: Usual diet Discharge Activity: Increase activity as tolerated Patient Instructions: COPD (Chronic Obstructive Pulmonary Disease) (ED), Opioid Safety, Pain Management Activity Restrictions/Additional Instructions: Thank you for choosing [facility] for your healthcare needs today. You have been screened and evaluated and felt safe for discharge. Health conditions do change or evolve sometimes and as such it is important that you follow up with your Primary Doctor to be re checked, 3-5 days is a general good time frame for follow up. You are always welcome to return to the ED for re assessment if your symptoms are worsening or you have new concerns Print Language: Central African Coding Level of Care Code ED Network Infrastructure Architect for Héctor Keys
[2024-08-09 17:11] LABS: Troponin 5 2HR 8.27 ng/L (0-10); Troponin 5 2HR Delta -0.73 ABS# (0-10)
--- NOTE | 2024-08-09 18:06 | ECG_ITS ---
[facility] Test Date: 2024-08-09 Pat Name: Rasheeda Child Department: Room: Gender: Female Compliance Coordinator: : 1955 Requested By: Elly Genao Order Number: [id number] Joseph MD: Dawson Calhoun M.D. Measurements Intervals Caldwell Rate: 77 P: 26 MT: 149 QRS: -22 QRSD: 136 T: -3 QT: 422 QTc: 480 Interpretive Statements SINUS RHYTHM BORDERLINE LEFT AXIS DEVIATION [QRS AXIS < -20] RIGHT BUNDLE BRANCH BLOCK [120+ ms QRS DURATION, UPRIGHT V1, 40+ ms S IN I/aVL/V4/V5/V6] Compared to ECG 08/09/2024 16:57:04 No significant changes Electronically Signed On 08-11-2024 06:27:10 CDT by Dawson Calhoun M.D. [email or web address] [id number]
[2024-08-09] MEDS: ipratropium-albuterol 3 mL Neb INHALATION (18:12)
[2024-08-09] MEDS: methylPREDNISolone sod succ 125 mg/2 mL INJ IVP (18:16)
--- NOTE | 2024-08-09 18:46 | ECG_ITS ---
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 Measurements Intervals Morrill Rate: 77 P: 9 GA: 120 QRS: -31 QRSD: 137 T: -1 QT: 408 QTc: 463 Interpretive Statements SINUS RHYTHM LEFT AXIS DEVIATION [QRS AXIS < -30] RIGHT BUNDLE BRANCH BLOCK [120+ ms QRS DURATION, UPRIGHT V1, 40+ ms S IN I/aVL/V4/V5/V6] Diffuse non specific ST T changes Compared to ECG 08/09/2024 12:46:21 Short GA interval no longer present Electronically Signed On 08-11-2024 06:28:40 CDT by Dawson Calhoun M.D. [email or web address] [email or web address]
== END 2024-08-09 18:51 | disposition home or self-care (01) ==
PROVIDERS: Emergency Medicine; Emergency Provider Emergency Medicine; PCP Family Medicine
DX: J44.1 Chronic obstructive pulmonary disease with (acute) exacerbation (principal); I10 Essential (primary) hypertension; Z72.0 Tobacco use
CPT/HCPCS: 36415; 71045; 80053; 83690; 83880; 84484; 85025; 85610; 93005; 94640; 94760; 96374; 99285; J2919; J9999

== ENCOUNTER → 2024-09-20 12:04 | Outpatient (BNVA) | payer MEDICARE, SELFPAY | PROVIDERS: PCP Family Medicine; Visit Provider Internal Medicine | DX: R06.00 Dyspnea, unspecified (principal); J44.9 Chronic obstructive pulmonary disease, unspecified; R07.9 Chest pain, unspecified; I10 Essential (primary) hypertension; Z87.891 Personal history of nicotine dependence | CPT/HCPCS: 36415; 80048; 85025; 85610; 99204 ==

== ENCOUNTER 2024-09-29 07:04 | Outpatient (CLI) | payer MEDICARE, SELFPAY ==
[2024-09-29 08:05] VITALS: BMI 44.8
--- NOTE | 2024-09-29 08:07 | ECG_ITS ---
[facility] Test Date: 2024-09-29 Pat Name: Rasheeda Child Department: Room: Gender: Female Dining Room Attendant: : 1955 Requested By: Patel Oleary Order Number: [id number] Joseph MD: Dawson Calhoun M.D. Interpretive Statements Lung unchanged pre/post procedure; Intraprocedure shortess of breath; Symptoms resoled by discharge PROCEDURE: At the baseline, the EKG revealed normal sinus rhythm with a right bundle branch block. Right axis deviation. Nonspecific T wave changes.. The baseline heart was 97 bpm with a blood pressue of 130/64 mm of Hg Lexiscan was infused over a period of 20 seconds. A total of 0.4 milligrams of Lexiscan was infused. The stress phase was continued for a total of 5 minutes. Heart rate at the end of the stress phase was 107 bpm with a blood pressure 114/71 mm of Hg. The EKG at the peak infusion revealed no significant changes. Sestamibi was injected 20 seconds after the Lexiscan infusion. Heart rate at the end of the recovery phase was 105 bpm with a blood pressure of 120/73 mm of Hg. CONCLUSION: 1. No significant EKG changes with the LexiScan infusion 2. No LexiScan induced chest pain or cardiac arrhythmia 3. Normal blood pressure and heart rate response 4. Sestamibi/sestamibi perfusion scan pending; see separate report. Electronically Signed On 10-04-2024 09:54:48 CDT by Dawson Calhoun M.D. [id number] [id number]
--- NOTE | 2024-09-29 08:08 | NMCV_ITS ---
NM lisbet perf SPECT r/s* [id number] Rasheeda Child Age: 68 Gender: F : 1955 Exam Date: 09/29/2024 08:42 Ordering Phys: Patel Oleary M.D ([email or web address]) Technologist: GISSEL Ventura Exam Location: [facility] Indications: CP STRESS TEST [facility] IMAGE PROTOCOL Rest/Stress 1 Lexiscan Day Radiopharmaceutical Dose (mCi) Administration Site Administered by Rest: Tc-99m 10.6 IV Cynthia Ferrara PAPER LATCHER Sestamibi Stress:Tc-99m 32.6 IV Cynthia Mcgrathgle, PAPER LATCHER Sestamibi Rest: 29-Sep-2024 60 Discovery 630 Stress: 29-Sep-2024 30 Discovery 630 0.4mg Lexiscan. Images obtained in supine and prone position. SPECT RESULTS Technical Quality: Good Raw Data Analysis: Soft tissue attenuation Image Corrections: No attenuation or motion correction applied Summed Stress Score: 1 Summed Rest Score: 2 Summed Difference Score: 0 PERFUSION FINDINGS Small area of minimally decreased tracer uptake was noted in the mid inferolateral segment. No significant reversibility was noted in this area. FUNCTIONAL RESULTS (calculated via Gated SPECT) Stress Image LV EF (%): 83 Stress EDV (mL):66 TID: 1.07 Stress ESV (mL):11 FUNCTIONAL FINDINGS: Segmental wall motion analysis revealing no gross wall motion abnormalities IMPRESSIONS 1. Myocardial perfusion imaging revealing small area of persistent decreased tracer uptake in the mid inferolateral segment suggesting myocardial scarring versus attenuation artifact 2. Normal LV ejection fraction of 83%. 3. LV wall motion analysis revealing no gross wall motion abnormalities. 4. Normal LV volume Low probability for coronary ischemia, based on the above findings Dr Dawson Calhoun MD FACC (Electronically Signed) Final Date: 29 September 2024 12:03 S
[2024-09-29 09:24] VITALS: BP 120/76; PULSE 106
== END 2024-09-29 07:05 | disposition home or self-care (01) ==
LOC: CDL 07:07
PROVIDERS: PCP Family Medicine; Visit Provider Internal Medicine
DX: R06.00 Dyspnea, unspecified (principal)
CPT/HCPCS: 36415; 78452; 93017; 96374; A9500; J2785

== ENCOUNTER 2024-10-04 07:19 | Outpatient (CLI) | payer MEDICARE, SELFPAY ==
[2024-10-04] VITALS (14 sets, daily range): BP systolic 122–171; BP diastolic 73–97; PULSE 79–105; RESP 16–21; TEMP 37; O2SAT 92–98; BMI 44.9
--- NOTE | 2024-10-04 07:30 | XACV_ITS ---
Exam Room: 2 Ht: 165 cm Wt: 112 kg BSA: 2.32 m2 Gender: Female : 1955 Any Known Allergies: Other Exam Priority: Routine Procedure(s): Procedure Description: Diagnostic procedure Procedure Description: Right Heart Catheterization Procedure Description: O2 saturation Diagnostic Cath Status: Elective Diagnostic Findings * INDICATION: Worsening dyspnea on exertion. * Normal right and left sided cardiac pressures. Conclusions 1. Normal right and left sided cardiac pressures. Recommendations * Further workup for non-cardiac causes of significant dyspnea on exertion. Pressures Phase:Rest RV : 35 / 4 / 9 @ 10:42:00 AM PA : 33 / 16 ( 23 ) @ 10:40:00 AM RA : a wave = 11 v wave = 10 mean = 7 @ 10:42:00 AM PCW : a wave = 11 v wave = 10 mean = 9 @ 10:40:00 AM O2 Content Phase:Rest PA : O2 Content O2: 71.9 @ 10:40:00 AM Saturations Phase:Rest AO : 93 @ 10:40:00 AM PA : 72 @ 10:40:00 AM Cardiac Output Phase:Rest Robb : 5 @ 10:02:22 AM Robb Cardiac Index: 3 @ 10:02:22 AM Flow Phase:Rest Qp : 5 @ 10:02:22 AM Qs : 5 @ 10:02:22 AM Clinical Evaluation EBL: 5mL-10mL Procedural Details Procedure Consent Obtained. Pre-Procedure Time Out. Identified patient by full name and date of as verbalized by the patient/guarantor. Does the consent match the physician's order: Yes. Accurate & Complete Informed Consent: Yes. Inpatient/Outpatient History & Physical on Chart: Yes. If H&P is completed, is and addenduem needed: No; If yes, is the addendum complete: N/A. Visualize and Verify Site with Patient/Guarantor: N/A. Relevant Radiology Images available: Yes. Pre-op teaching completed and patient verbalized understanding. The risks, benefits, and alternatives of sedation and/or procedure were discussed by physician. The patient agrees to continue. Procedure started. [facility] Clinical Fraility Score: 5: Mildly Frail. [employer] Viewer Indications: Other. Chest Pain Symptom Assessment: Non-anginal Chest Pain. Correct patient, site and procedure confirmed by cath team. PERRLA. Strong, equal hand pipe insulator bilaterally. Lungs clear x 5 lobes. IV Site on Arrival: 20 gauge in the left anticubital. IV Site on Arrival: 20 gauge in the right anticubital. IV Fluids: 0.9% NaCl at KVO. 0 mL infused prior to cardiac catheterization technician. Pre Procedural Pulses: bilateral dorsalis pedis was Doppled. Pre Procedural Pulses: bilateral posterior tibial was Doppled. Pre Procedural Pulses: bilateral radial was 1+. right brachial was prepped with chloroprep then draped in the usual sterile fashion. Baseline sample Acquired. HR: 96 BPM. Physician arrived. Physician scrubbed in. Immediate Pre-Procedure Time Out. Correct Patient: Yes; Correct Procedure: Yes; Correct Site: Yes; Correct Patient Position: Yes; Correct Supplies: Yes; Dried Flammable Prep: Yes; Blood Products Available: N/A;. Lidocaine 1% infiltrated to the right brachial. Sheath wire inserted through the right brachial IV catheter. IV catheter out OTW. [place]icolette MON catheter inserted. [place] wire inserted through the catheter. Wire and catheter out. [place]icolette MON catheter inserted. 0.025 wire inserted. Wire and catheter out. Sheath removed. A Manual Compression was successful obtaining hemostatsis at the Right Brachial Vein insertion site. Lidocaine 1% infiltrated to the right groin. Ultrasound being used to obtain venous access. Venous access obtained with a micropuncture set. [place]icolette MON catheter inserted. 0.025 wire inserted. Wire out. Oximetry samples were obtained. Normal venous range: 60-85%. Normal arterial range: 95-100%. Pressure measurements obtained. [place] out. A Mynx was successful obtaining hemostatsis at the Right Femoral vein insertion site. Vital chart was stopped. Post Procedure: Pulses reassessed and unchanged. PERRLA. Strong, equal hand pipe insulator bilaterally. No VTE prophylaxis required. Medication's Wasted: Lidocaine 1% = 2 mL. Medication's Wasted: Heparin = 2000 units. Total IV fluids: 200 mL. Complications: None. Estimated blood loss: 5mL-10mL. Responsiveness - Normal response to verbal stimuli; alert and oriented, PERRLA. Airway - Unaffected, no intervention required; spontaneous ventilation. Circulation: W/N/L, pulses unchanged. Nausea/Vomiting: No. Procedure completed. Patient transferred by stretcher to CPRU. Access Site Site: Right Brachial Vein Sheath Size: 6 Fr Hemostasis Method: Manual Compression Hemostasis Success: Successful Site: Right Femoral vein Sheath Size: 6 Fr Hemostasis Method: Mynx Hemostasis Success: Successful Procedure Medications Start: 9:08 AM Stop: 9:08 AM Medication: Benadryl Amount: 50 mg Route: I.V. Start: 9:10 AM Stop: 9:10 AM Medication: Versed Amount: 1 mg Route: I.V. Start: 9:22 AM Stop: 9:22 AM Medication: Versed Amount: 1 mg Route: I.V. I, the attending physician, have reviewed and verified all procedure medications. Yes, all medications given per verbal order History/Risk Factors Hypertension: Yes Dyslipidemia: No Peripheral Arterial Disease (PAD): No Myocardial Infarction (NE): No Obesity: Yes Renal Disease: No Tobacco Use: Former Prior Interventions PCI: No CABG: No Valve Surgery: No Report Signatures Finalized by Patel Oleary MD on 10/05/2024 08:53 AM
--- NOTE | 2024-10-04 09:13 | W.PM.OPSUD ---
Surgery/Procedure H&P Update DATE OF PROCEDURE: October 04, 2024 DATE H&P PERFORMED: 09/20/24 H&P UPDATE INFORMATION: I have reviewed H&P completed within last 30 days, I have examined patient prior to procedure and No changes to prior documentation PREOP DIAGNOSIS: Dyspnea on exertion PRIMARY INDICATION FOR PROCEDURE: Dyspnea on exertion PLANNED PROCEDURE: Operation Date: 10/04/24 08:30 Proposed Procedures p Cardiac Catheterization(Right) - Patel Oleary M.D PATIENT REASSESSED PRIOR TO SEDATION, WITH NO CHANGE NOTED: Yes PHYSICAL EXAM: alert, oriented x 3, clear to auscultation bilaterally and regular rate & rhythm AIRWAY EVAL/ANESTHESIA PLAN: normal airway, ASA III, Local Anesthesia, Risks, benefits & alternatives of sedation and/or procedure discussed and Patient agrees to continue as planned ADDITIONAL INFORMATION: Moderate sedation
[2024-10-04 09:52] LABS: Alveolar-Arterial Oxygen Gradi 7.6 mmHg (5-10)
[2024-10-04 09:54] LABS: Blood Gas Sample Site Not specified
[2024-10-04 09:55] LABS: Arterial Blood Gas Hematocrit 40.5 % (37-47); Carboxyhemoglobin 1.3 %THgb (0.4-20.1); Methemoglobin 0.3 % (0.4-1.5)
[2024-10-04 09:56] LABS: Blood Gas Operator Identificat GD
[2024-10-04 09:57] LABS: Blood Gas Sample Type Venous
--- NOTE | 2024-10-04 12:07 | PC.NURSE ---
Patient ambulated with minimal 1 person assist to bathroom and back to room. Right femoral access site checked and no hematoma or bleeding noted after ambulation.
== END 2024-10-04 13:04 | disposition home or self-care (01) ==
PROVIDERS: PCP Family Medicine; Visit Provider Internal Medicine
DX: R06.09 Other forms of dyspnea (principal); I10 Essential (primary) hypertension; Z87.891 Personal history of nicotine dependence; E66.9 Obesity, unspecified; Z68.42 Body mass index [BMI] 45.0-49.9, adult; J44.9 Chronic obstructive pulmonary disease, unspecified; Z99.81 Dependence on supplemental oxygen; K21.9 Gastro-esophageal reflux disease without esophagitis
CPT/HCPCS: 36415; 82810; 93451; 99152; 99153; C1751; C1760; C1769; C1894; G0269; J1200; J1644; J2250; J7030; J9999

== ENCOUNTER → 2024-10-27 10:34 | Outpatient (BNVA) | payer MEDICARE, SELFPAY | PROVIDERS: PCP Family Medicine; Visit Provider Family Medicine | DX: I10 Essential (primary) hypertension (principal) | CPT/HCPCS: 80048 ==

== ENCOUNTER → 2024-11-30 13:09 | Outpatient (BNVA) | payer MEDICARE, SELFPAY | PROVIDERS: PCP Family Medicine; Visit Provider Internal Medicine | DX: J96.10 Chronic respiratory failure, unspecified whether with hypoxia or hypercapnia (principal); Z99.81 Dependence on supplemental oxygen; J44.89 Other specified chronic obstructive pulmonary disease; J45.30 Mild persistent asthma, uncomplicated; I51.89 Other ill-defined heart diseases; Z87.891 Personal history of nicotine dependence; T78.40XA Allergy, unspecified, initial encounter; X58.XXXA Exposure to other specified factors, initial encounter; J44.9 Chronic obstructive pulmonary disease, unspecified | CPT/HCPCS: 36415; 85025; 86003; 99204; Q3014 ==

== ENCOUNTER 2024-12-12 08:10 | Outpatient (CLI) | payer MEDICARE, SELFPAY ==
--- NOTE | 2024-12-12 08:45 | CT_ITS ---
WS: [id number] LDCT LUNG CANCER SCREENING TECHNIQUE: Noncontrast CT of the chest with coronal and sagittal reformatted images. CLINICAL INFORMATION: Lung Screen COMPARISON: None. DLP: 155.57 mGy.cm DIvol: Mean CTDIvol: 4.00 (mGy) All CT scans at [facility] use at least one of these dose optimization techniques: automated exposure control; mA and/or kV adjustment per patient size (includes targeted exams where dose is matched to clinical indication); or iterative reconstruction. FINDINGS: Chronic emphysematous changes. Areas of parenchymal fibrosis. Subsegmental atelectasis with pleural parenchymal scarring worse in the lower lobes. Subpleural nodule opacity RIGHT upper lobe measuring 7.7 mm. Noncalcified nodule RIGHT upper lobe measuring 4 mm. Subsegmental atelectasis in the RIGHT middle lobe. Subpleural opacity RIGHT lower lobe measuring 6 mm. Additional 7 mm opacity RIGHT lower lobe at the diaphragm. Slightly spiculated nodule LEFT upper lobe measuring 6.5 mm. Smaller scattered nodules in the LEFT upper lobe. Pleural parenchymal scarring LEFT lower lobe posterior medially with largest nodular opacity measuring 2.2 cm Aortic calcification. Coronary calcification. No mediastinal or hilar lymphadenopathy. No axillary lymphadenopathy. Moderate esophageal hiatal hernia. Adrenal glands are normal. Partially visualized LEFT renal cyst measuring 4.9 cm. Fatty atrophy of the pancreas. No axillary lymphadenopathy. Advanced thoracic kyphosis with chronic anterior wedging in the midthoracic spine. Hypertrophic changes. CT/CT lung screening [id number] IMPRESSION: Numerous noncalcified nodules with pleural parenchymal scarring LEFT lower lobe with the largest opacity measures 2.2 cm Additional spiculated nodule LEFT upper lobe measuring 6.5 mm. 7.7 mm nodule RIGHT upper lobe subpleural. Considering no comparisons recommend further evaluation with PET/CT to assess F DG activity LUNG-RADS: 4B-Suspicious FOLLOW UP: PET/CT recommended
== END 2024-12-12 08:11 | disposition home or self-care (01) ==
LOC: RAD 08:12
PROVIDERS: PCP Family Medicine; Visit Provider Internal Medicine
DX: Z12.2 Encounter for screening for malignant neoplasm of respiratory organs (principal); Z87.891 Personal history of nicotine dependence; J43.8 Other emphysema; J84.10 Pulmonary fibrosis, unspecified; J98.11 Atelectasis; I70.0 Atherosclerosis of aorta; I25.84 Coronary atherosclerosis due to calcified coronary lesion; K44.9 Diaphragmatic hernia without obstruction or gangrene; N28.1 Cyst of kidney, acquired; K86.89 Other specified diseases of pancreas; R91.8 Other nonspecific abnormal finding of lung field
CPT/HCPCS: 71271

== ENCOUNTER → 2024-12-19 09:21 | Outpatient (BNVA) | payer MEDICARE, SELFPAY | PROVIDERS: PCP Family Medicine; Visit Provider Internal Medicine | DX: R91.8 Other nonspecific abnormal finding of lung field (principal); Z99.81 Dependence on supplemental oxygen; Z87.891 Personal history of nicotine dependence | CPT/HCPCS: 99214; Q3014 ==

== ENCOUNTER 2024-12-23 11:29 | Outpatient (CLI) | payer MEDICARE, SELFPAY ==
--- NOTE | 2024-12-23 12:00 | PETR_ITS ---
PROCEDURE INFORMATION: Exam: PET/CT Skull Base to Mid-thigh Exam date and time: 12/23/2024 12:47 PM Age: 69 years old Clinical indication: Abnormal findings; Left lower lobe lung nodule LABS AND CLINICAL REPORTS: Glucose: 88 mg/dl Treatment strategy for malignancy (PET staging): Initial Staging (PI) TECHNIQUE: Imaging protocol: Following at least four-hour fasting and following the injection of radiopharmaceutical, low dose CT images were obtained. Then, PET images were obtained. Attenuation corrected images were constructed using the CT scan. Fused images of PET and CT were reviewed. The standardized uptake values (SUV) reported below are maximum values within a region of interest, expressed in gm/ml. Exam includes orbital meatal line to mid-thigh. SUV normalization method: BodyWeight Radiopharmaceutical: 11.55 mCi F-18 FDG (Fluorodeoxyglucose), IV. Time of imaging post radiopharmaceutical administration: 46 minutes Injection site: left ac COMPARISON: CT lung screening [id number] 12/12/2024 8:34 AM FINDINGS: Brain: Visualized brain has normal physiologic uptake. Pharynx: No abnormal uptake. Larynx: No abnormal uptake. Lungs, pleura and trachea: FDG avid medial left lower lobe nodule measuring 1.2 cm with SUV max 7.7 and surrounding mildly avid consolidation inferiorly in the left lower lobe. Mildly FDG avid left apical nodule measuring 9 mm with SUV of 2.4. Remaining scattered pulmonary nodules are not FDG avid. Heart: Normal physiologic uptake. Mediastinal space: No abnormal uptake. Liver: No abnormal uptake. Gallbladder and biliary ducts: No abnormal uptake. Pancreas: No abnormal uptake. Spleen: No abnormal uptake. Adrenal glands: No abnormal uptake. Kidneys and ureters: Normal physiologic uptake. Simple left renal cysts. Nonobstructing bilateral renal calculi. Stomach and bowel: No abnormal uptake. Vasculature: No abnormal uptake. Lymph nodes: No abnormal uptake. No lymphadenopathy in the head, neck, chest, abdomen, pelvis, and extremities. Skeleton: No abnormal uptake in the visualized axial and appendicular skeleton. Soft tissues: No abnormal uptake in the visualized head, neck, chest, abdomen, pelvis, and extremities. METRICS: Mediastinal blood pool: SUV max = 2.6 Liver uptake: SUV max = 3.7 PET/PET skull to thigh INIT [id number] IMPRESSION: 1. FDG avid medial left lower lobe nodule is concerning for malignancy. 2. Mildly FDG avid left apical nodule is indeterminate. 3. Remaining scattered pulmonary nodules are not FDG avid.
== END 2024-12-23 11:30 | disposition home or self-care (01) ==
LOC: RAD 11:29
PROVIDERS: PCP Family Medicine; Visit Provider Internal Medicine
DX: R91.8 Other nonspecific abnormal finding of lung field (principal); N28.1 Cyst of kidney, acquired; N20.0 Calculus of kidney
CPT/HCPCS: 78815; A9552

== ENCOUNTER → 2025-01-03 12:58 | Outpatient (BNVA) | payer MEDICARE, SELFPAY | PROVIDERS: PCP Family Medicine; Visit Provider Internal Medicine | DX: R91.1 Solitary pulmonary nodule (principal); R91.8 Other nonspecific abnormal finding of lung field; Z99.81 Dependence on supplemental oxygen; Z87.891 Personal history of nicotine dependence | CPT/HCPCS: 99214; Q3014 ==